=== PATIENT | male | born 1955 | race Caucasian/White ===

== ENCOUNTER 2023-09-20 14:33 | Emergency (ER) | payer OTHER, SELFPAY ==
--- NOTE | ~2023-09-20 | XR_ITS ---
EXAMINATION: XR CHEST CLINICAL INFORMATION: Fever and weakness COMPARISON: None available. TECHNIQUE: Frontal view of the chest was obtained. FINDINGS: No significant abnormality is noted involving the heart, lungs, mediastinum, bony thorax or soft tissues. XR/XR chest 1V IMPRESSION: Unremarkable examination.
--- NOTE | ~2023-09-20 | CT_ITS ---
EXAMINATION: CT HEAD WITHOUT CONTRAST CLINICAL INFORMATION: Altered gait COMPARISON: None available. TECHNIQUE: Contiguous axial imaging was performed from the skull base to vertex without intravenous administration of contrast. This CT examination was performed using dose optimization techniques as appropriate, variously including the following: *Automated exposure control *Adjustment of mA and/or kV according to patient size (this includes techniques or standardized protocols for targeted exams where dose is matched to indication/reason for exam; i.e. extremities or head) *Use of iterative reconstruction technique DLP: 776 mGy-cm FINDINGS: There is no evidence of an extra-axial collection. There is no evidence of intra or extra-axial hemorrhage. The ventricles and extra-axial CSF spaces are slightly prominent suggestive of mild generalized atrophy. There is nonspecific periventricular white matter disease. There is question of a left basal ganglia lacunar infarct axial image 28 series 2. No mass or mass effect is seen. No skull fracture. Visualized paranasal sinuses, mastoid air cells and middle ears are clear. CT/CT head/brain wo IV con IMPRESSION: Mild generalized atrophy and nonspecific periventricular white matter disease. Question left basal ganglia lacunar infarct.
[2023-09-20 14:38] VITALS: BP 150/70; PULSE 84; O2SAT 95
[2023-09-20 14:46] VITALS: BP 143/57; PULSE 84; RESP 18; TEMP 39.1; O2SAT 97; BMI 36.9
--- NOTE | 2023-09-20 14:59 | ECG_ITS ---
Test Reason : afib Blood Pressure : / mmHG Vent. Rate : 085 BPM Atrial Rate : 085 BPM P-R Int : 272 ms QRS Dur : 092 ms QT Int : 332 ms P-R-T Axes : 063 073 022 degrees QTc Int : 395 ms Sinus rhythm with 1st degree A-V block with Premature atrial complexes Otherwise normal ECG No previous ECGs available Referred By: John Jackson Electronically Signed By:Lobo Bustillos
--- NOTE | 2023-09-20 15:02 | ED_ITS ---
HPI - General Adult General Chief complaint: General Medical Stated complaint: FEVER WEAKNESS Time Seen by Provider: 09/20/23 14:41 Source: patient, family () and other [facility] Limitations: no limitations History of Present Illness HPI narrative: 68 years old with history of chronic kidney disease stage 3, GERD, hyperlipidemia, diabetes, morbid obesity, hypertension, OMER, lower back pain, presents emergency room for fever and generalized weakness. According to the patient and his was the primary source of history the patient woke up this morning complaining of weakness and seemed unsteady when walking, they went to the [place] where the patient received most of his care and it was noted that patient was febrile and therefore he was sent here for medical evaluation. On arrival patient the temperature of 102?, he is oriented times 4, reports weakness, runny nose but otherwise denies respiratory distress, no chest pain no abdominal pain nausea or vomiting. reports that she did not notice any rash on the patient's skin but that few weeks ago patient had a ?lesion? on his big toe of the left foot which has since then healed. reports that she thinks patient is vaccinated for COVID last flu shot in 2021. He denies respiratory symptoms, denies headache, blurry vision, slurred speech No recent trauma Denies unilateral weakness [facility] they were concerned for the fever and wanted to rule out also possible CVA. Related Data Allergies Allergy/AdvReac Type Severity Reaction Status Date / Time amlodipine Allergy Unknown Verified 09/20/23 14:57 atorvastatin [From Lipitor] Allergy Unconscious Verified 09/20/23 14:57 chlorthalidone Allergy Unknown Verified 09/20/23 14:57 diltiazem Allergy Unknown Verified 09/20/23 14:57 enalapril Allergy Unknown Verified 09/20/23 14:57 fluticasone Allergy Unknown Verified 09/20/23 14:57 lisinopril Allergy Unknown Verified 09/20/23 14:57 nifedipine Allergy Unknown Verified 09/20/23 14:57 rosuvastatin Allergy Unknown Verified 09/20/23 14:57 Review of Systems 2 Review of Systems: Yes all other systems are reviewed and are negative [facility] Social History Social History Alcohol intake: never Smoked in Last 30 Days: No Use of substances other than those prescribed or required for medical reasons: No Advance Directives: No Advance Directives Information Provided: Yes Physical Exam ED Vital Signs: Vital Signs - 24 hr 09/20/23 14:46 09/20/23 16:01 09/20/23 16:45 Temperature 102.4 F H 103 F H 102.8 F H Pulse Rate 84 81 Respiratory Rate 18 19 Blood Pressure 143/57 H 134/54 L Pulse Oximetry 97 92 Oxygen Delivery Method Room Air Room Air 09/20/23 17:33 Temperature 102.3 F H Pulse Rate 82 Respiratory Rate 18 Blood Pressure 131/68 Pulse Oximetry 94 Oxygen Delivery Method Room Air BMI result Body Mass Index 36.9 General: Alert, Not in Distress Skin: No rash, warm HEENT: Atraumatic, No Exudate or Pharyngeal Erythema Resp: Normal Breath sounds bilaterally Cardio: Regular rate and Rhythm, Normal S1, S2 ABD: Abd soft, non tender, no guarding or rebound. Normal Bowel sounds. : No cva tenderness Neuro: Alert, oriented x4, PERRL Strenght 5/5 on all extremities Sensation is preserved in both lower and upper extremities Index to nose: normal Cranial Nerves II-XII grossly intact No dysarthria, or aphasia No neglet. Visual buitrago are normal bilaterally Psych: Cooperative, NO SI Course Reevaluation(s) Reevaluation #1: Repeated the patient's EKG which I interpreted and reviewed shows sinus rhythm with first-degree heart block Blood work showed positive COVID test which accounts for patient's symptoms. Patient reports that he feels better and at this time he does not require any supplemental oxygen I think he is a good candidate for outpatient treatment. Given kidney insufficiency stage III I recommended patient to avoid NSAIDs and just use Tylenol. Return precautions were discussed with the patient and his at baseline. I recommended the patient to follow-up with his PCP in the next week Antiviral use was discussed at bedside pros and cons very evaluated with the patient and we decided to not start antiviral rn Time: 18:15 Medications Administered Discontinued Medications Generic Name Dose Route Start Last Admin Trade Name Freq PRN Reason Stop Dose Admin Acetaminophen 975 mg 09/20/23 14:58 09/20/23 15:10 Acetaminophen 325 Mg Tablet PO 09/20/23 14:59 975 mg ONCE ONE Administration Sodium Chloride 500 mls @ 999 mls/hr 09/20/23 15:00 09/20/23 16:21 Ns IV 09/20/23 15:30 Infused .Q31M STEF Infusion Medical Decision Making Medical Decision Making [facility] Narrative: 68 years old presenting to the emergency room with fever and weakness. The source of the fever right now is unclear however patient is having some cough in the emergency room as well as reported runny nose therefore I think URI is definitely a possible diagnosis, patient does not have any urinary symptoms therefore UTI is less likely but we will send the UA for confirmation Viral syndrome it is also possible. Patient has complained of headaches this morning but for now he seems asymptomatic with no focal neurological deficit no signs of meningism therefore I have meningeal process low on my differential diagnosis at this time. Neurological exam was not consistent with CVA symptoms have been ongoing since this morning therefore I think a simple CT head should be enough to rule out a subacute process at this time. Plan CT head Chest x-ray CBC, BMP, UA COVID flu RSV IV fluids Blood cultures Tylenol Admission/Observation Consideration of admission/observation: Escalation of care including admission/observation considered Hemodynamically stable, no supplemental oxygen good outpatient candidate Lab Data [facility] Lab Attestation statement: I reviewed the patient's lab results. Positive COVID swab 09/20/23 15:52 09/20/23 15:53 Labs: Lab Results 09/20/23 09/20/23 09/20/23 Range/Units 15:52 15:53 15:56 WBC 8.0 (4.8-10.8) X10*3/uL RBC 3.81 L (4.60-5.80) X10*6/uL Hgb 11.0 L (14.0-18.0) g/dl Hct 33.5 L (42.0-52.0) % MCV 87.9 (80.0-98.0) fL MCH 28.9 (27.0-33.0) pg MCHC 32.8 (31.0-36.0) g/dl RDW 13.5 (11.0-16.0) % Plt Count 180 (160-400) X10*3/uL MPV 9.3 L (9.4-12.4) fL Immature Gran % (Auto) 0.3 (0.0-0.4) % Neut % (Auto) 77.1 H (45-73) % Lymph % (Auto) 11.4 L (20-40) % [place] % (Auto) 10.3 (2-11) % Eos % (Auto) 0.5 (0-4) % Baso % (Auto) 0.4 (0-2) % Lymph # (Auto) 0.9 L (1.2-4.9) X10*3/uL [place] # (Auto) 0.8 (0.1-1.2) X10*3/uL Eos # (Auto) 0.0 (0.0-0.4) X10*3/uL Baso # (Auto) 0.0 (0.0-0.2) X10*3/uL Abs Immat Gran (auto) 0.02 (0.00-0.03) X10*3/uL Absolute Neuts (auto) 6.2 (2.0-8.3) x10*3/uL Absolute Nucleated RBC 0.000 (0.0-0.012) X10*3/uL Nucleated RBC % (auto) 0.0 (0.0-0.2) /100WBC VBG pH (7.32-7.43) VBG pCO2 mmHg VBG pO2 mmHg VBG HCO3 (22-26) mmol/L VBG O2 Saturation % VBG Base Excess mmol/L Sodium 143 (135-145) mmol/L Potassium 3.3 (3.3-5.1) mmol/L Chloride 106 (96-108) mmol/L Carbon Dioxide 28 (22-29) mmol/L Anion Gap 12 (12-20) BUN 27 H (9-16) mg/dL Creatinine 1.94 H (0.5-1.4) mg/dL Estim Creat Clear Calc 45.8 Estimated GFR 35 Random Glucose 118 H (60-115) mg/dL Calcium 9.0 (8.4-10.2) mg/dL Urine Color Urine Appearance Urine pH (5.0-9.0) Ur Specific [place] (1.005-1.025) Urine Protein (Neg-Trace) mg/dL Urine Glucose (UA) (Negative) mg/dL Urine Ketones (Negative) mg/dL Urine Blood (Negative) Urine Nitrite (Negative) Ur Leukocyte Esterase (Negative) Urine RBC (0-2) /HPF Urine WBC (0-5) /HPF Ur Squamous Epith Cells (0-2) /HPF Urine Bacteria (None Seen) Hyaline Casts (0-2) /LPF Influenza Type A (PCR) NEGATIVE (Negative) Influenza Type B (PCR) NEGATIVE (Negative) RSV RNA Qual (PCR) NEGATIVE (Negative) SARS-CoV-2 RNA (RT-PCR) POSITIVE A (Negative) 09/20/23 09/20/23 Range/Units 15:57 17:32 WBC (4.8-10.8) X10*3/uL RBC (4.60-5.80) X10*6/uL Hgb (14.0-18.0) g/dl Hct (42.0-52.0) % MCV (80.0-98.0) fL MCH (27.0-33.0) pg MCHC (31.0-36.0) g/dl RDW (11.0-16.0) % Plt Count (160-400) X10*3/uL MPV (9.4-12.4) fL Immature Gran % (Auto) (0.0-0.4) % Neut % (Auto) (45-73) % Lymph % (Auto) (20-40) % [place] % (Auto) (2-11) % Eos % (Auto) (0-4) % Baso % (Auto) (0-2) % Lymph # (Auto) (1.2-4.9) X10*3/uL [place] # (Auto) (0.1-1.2) X10*3/uL Eos # (Auto) (0.0-0.4) X10*3/uL Baso # (Auto) (0.0-0.2) X10*3/uL Abs Immat Gran (auto) (0.00-0.03) X10*3/uL Absolute Neuts (auto) (2.0-8.3) x10*3/uL Absolute Nucleated RBC (0.0-0.012) X10*3/uL Nucleated RBC % (auto) (0.0-0.2) /100WBC VBG pH 7.40 (7.32-7.43) VBG pCO2 50 mmHg VBG pO2 31 mmHg VBG HCO3 32 H (22-26) mmol/L VBG O2 Saturation 46.0 % VBG Base Excess 6.3 mmol/L Sodium (135-145) mmol/L Potassium (3.3-5.1) mmol/L Chloride (96-108) mmol/L Carbon Dioxide (22-29) mmol/L Anion Gap (12-20) BUN (9-16) mg/dL Creatinine (0.5-1.4) mg/dL Estim Creat Clear Calc Estimated GFR Random Glucose (60-115) mg/dL Calcium (8.4-10.2) mg/dL Urine Color Yellow Urine Appearance Clear Urine pH 5.5 (5.0-9.0) Ur Specific [place] 1.020 (1.005-1.025) Urine Protein Trace (Neg-Trace) mg/dL Urine Glucose (UA) Negative (Negative) mg/dL Urine Ketones Negative (Negative) mg/dL Urine Blood Negative (Negative) Urine Nitrite Negative (Negative) Ur Leukocyte Esterase Negative (Negative) Urine RBC 0-2 (0-2) /HPF Urine WBC 0-5 (0-5) /HPF Ur Squamous Epith Cells 0-2 (0-2) /HPF Urine Bacteria None Seen (None Seen) Hyaline Casts 0-2 (0-2) /LPF Influenza Type A (PCR) (Negative) Influenza Type B (PCR) (Negative) RSV RNA Qual (PCR) (Negative) SARS-CoV-2 RNA (RT-PCR) (Negative) Independent Interpretation I performed an independent interpretation of an: EKG (I personally reviewed patient's EKG that shows in my opinion atrial fibrillation) Chronic Conditions Patient?s care impacted by: Diabetes and Other Discharge Plan Discharge Clinical Impression: URI (upper respiratory infection), COVID, Fever, Weakness Patient Disposition: Home, Self-Care Additional Instructions: You were seen in the emergency room for fever and weakness Your lab work showed positive COVID swab which accounts for today symptoms. At home we recommend using Tylenol 1000 mg every 6 hours for symptoms control Return to the emergency room if your symptoms worsen or if you experience shortness of breath or chest pain. Follow-up with your primary care physician in a week. Print Language: Armenian
[2023-09-20] MEDS: Acetaminophen 325 MG TABLET 975 MG PO (15:10)
[2023-09-20] MEDS: 0.9 % Sodium Chloride 500 ML 999 ML IV (15:10)
[2023-09-20 16:01] VITALS: TEMP 39.4
[2023-09-20 16:01] LABS: MANUAL DIFF FLAG NO
[2023-09-20 16:03] LABS: Basophils Percent Auto 0.4 % (0-2); Eosinophils Percent Auto 0.5 % (0-4); Hematocrit 33.5 % (42.0-52.0); Imm Gran Abs Auto 0.02 X10*3/uL (0.00-0.03); Imm Gran Pct Auto 0.3 % (0.0-0.4); Lymphocytes Absolute Auto 0.9 X10*3/uL (1.2-4.9); Lymphocytes Percent Auto 11.4 % (20-40); Mean Corpuscular HGB Conc 32.8 g/dl (31.0-36.0); Mean Corpuscular Hemoglobin 28.9 pg (27.0-33.0); Mean Corpuscular Volume 87.9 fL (80.0-98.0); Mean Platelet Volume 9.3 fL (9.4-12.4); Monocytes Absolute Auto 0.8 X10*3/uL (0.1-1.2); Monocytes Percent Auto 10.3 % (2-11); Neutrophils Absolute Auto 6.2 x10*3/uL (2.0-8.3); Neutrophils Percent Auto 77.1 % (45-73); Platelet Count 180 X10*3/uL (160-400); Red Blood Count 3.81 X10*6/uL (4.60-5.80); Red Cell Distribution Width 13.5 % (11.0-16.0)
[2023-09-20 16:06] LABS: VBG Base Excess 6.3 mmol/L; VBG HCO3 32 mmol/L (22-26); VBG pCO2 50 mmHg; VBG pO2 31 mmHg
[2023-09-20 16:15] LABS: Anion Gap 12 (12-20); Blood Urea Nitrogen 27 mg/dL (9-16); Carbon Dioxide 28 mmol/L (22-29); Chloride 106 mmol/L (96-108); Creatinine Clr Calc Pharmacy 45.8; Estimated Glomerular Filt Rate 35; Glucose Random 118 mg/dL (60-115); Potassium 3.3 mmol/L (3.3-5.1); Sodium 143 mmol/L (135-145)
[2023-09-20 16:17] LABS: Venous Blood Gas Refer to POC result
[2023-09-20 16:45] VITALS: BP 134/54; PULSE 81; RESP 19; TEMP 39.3; O2SAT 92
[2023-09-20 17:23] LABS: Influenza A PCR NEGATIVE (Negative); Influenza B PCR NEGATIVE (Negative); Resp Syncy Virus RNA Qual PCR NEGATIVE (Negative); SARS COV2 PCR INHOUSE POSITIVE (Negative)
[2023-09-20 17:33] VITALS: BP 131/68; PULSE 82; RESP 18; TEMP 39.1; O2SAT 94
--- NOTE | 2023-09-20 17:47 | ECG_ITS ---
Test Reason : irregular rhythm Blood Pressure : / mmHG Vent. Rate : 082 BPM Atrial Rate : 082 BPM P-R Int : 280 ms QRS Dur : 096 ms QT Int : 350 ms P-R-T Axes : 059 069 018 degrees QTc Int : 408 ms Sinus rhythm with sinus arrhythmia with 1st degree A-V block Otherwise normal ECG When compared with ECG of 20-SEP-2023 15:20, Premature atrial complexes are no longer Present Referred By: John Jackson Electronically Signed By:Lobo Bustillos
[2023-09-20 17:49] LABS: Appearance Urine Clear; Color Urine Yellow; Glucose Urine UA Negative (Negative); Leukocyte Esterase Urine Negative (Negative); Nitrite Urine Negative (Negative); PH 5.5 (5.0-9.0); Urine Blood Negative (Negative); Urine Ketones Negative (Negative); Urine Protein Trace mg/dL (Neg-Trace)
[2023-09-20 18:06] LABS: Bacteria Urine None Seen (None Seen); Hyaline Casts Urine 0-2 /LPF (0-2); RBC Urine 0-2 /HPF (0-2); Squamous Epithelial Cell Urine 0-2 /HPF (0-2); WBC Urine 0-5 /HPF (0-5)
--- NOTE | 2023-09-20 18:20 | ED.GENADULT ---
HPI - General Adult General Chief complaint: General Medical Stated complaint: FEVER WEAKNESS Time Seen by Provider: 09/20/23 14:41 Source: patient, family () and other [facility]) Limitations: no limitations History of Present Illness HPI narrative: OPENED IN DUPLICATE PLEASE DELETE Related Data Allergies Allergy/AdvReac Type Severity Reaction Status Date / Time amlodipine Allergy Unknown Verified 09/20/23 14:57 atorvastatin [From Lipitor] Allergy Unconscious Verified 09/20/23 14:57 chlorthalidone Allergy Unknown Verified 09/20/23 14:57 diltiazem Allergy Unknown Verified 09/20/23 14:57 enalapril Allergy Unknown Verified 09/20/23 14:57 fluticasone Allergy Unknown Verified 09/20/23 14:57 lisinopril Allergy Unknown Verified 09/20/23 14:57 nifedipine Allergy Unknown Verified 09/20/23 14:57 rosuvastatin Allergy Unknown Verified 09/20/23 14:57 PMFSH Social History Social History Alcohol intake: never Smoked in Last 30 Days: No Use of substances other than those prescribed or required for medical reasons: No Advance Directives: No Advance Directives Information Provided: Yes Physical Exam ED Vital Signs: Vital Signs - 24 hr 09/20/23 14:46 09/20/23 16:01 09/20/23 16:45 Temperature 102.4 F H 103 F H 102.8 F H Pulse Rate 84 81 Respiratory Rate 18 19 Blood Pressure 143/57 H 134/54 L Pulse Oximetry 97 92 Oxygen Delivery Method Room Air Room Air 09/20/23 17:33 Temperature 102.3 F H Pulse Rate 82 Respiratory Rate 18 Blood Pressure 131/68 Pulse Oximetry 94 Oxygen Delivery Method Room Air BMI result Body Mass Index 36.9 Medications Administered Discontinued Medications Generic Name Dose Route Start Last Admin Trade Name Freq PRN Reason Stop Dose Admin Acetaminophen 975 mg 09/20/23 14:58 09/20/23 15:10 Acetaminophen 325 Mg Tablet PO 09/20/23 14:59 975 mg ONCE ONE Administration Sodium Chloride 500 mls @ 999 mls/hr 09/20/23 15:00 09/20/23 16:21 Ns IV 09/20/23 15:30 Infused .Q31M STEF Infusion Medical Decision Making Lab Data 09/20/23 15:52 09/20/23 15:53 Labs: Lab Results 09/20/23 09/20/2309/19/24 Range/Units 15:52 15:53 15:56 WBC 8.0 (4.8-10.8) X10*3/uL RBC 3.81 L (4.60-5.80) X10*6/uL Hgb 11.0 L (14.0-18.0) g/dl Hct 33.5 L (42.0-52.0) % MCV 87.9 (80.0-98.0) fL MCH 28.9 (27.0-33.0) pg MCHC 32.8 (31.0-36.0) g/dl RDW 13.5 (11.0-16.0) % Plt Count 180 (160-400) X10*3/uL MPV 9.3 L (9.4-12.4) fL Immature Gran % (Auto) 0.3 (0.0-0.4) % Neut % (Auto) 77.1 H (45-73) % Lymph % (Auto) 11.4 L (20-40) % [place] % (Auto) 10.3 (2-11) % Eos % (Auto) 0.5 (0-4) % Baso % (Auto) 0.4 (0-2) % Lymph # (Auto) 0.9 L (1.2-4.9) X10*3/uL [place] # (Auto) 0.8 (0.1-1.2) X10*3/uL Eos # (Auto) 0.0 (0.0-0.4) X10*3/uL Baso # (Auto) 0.0 (0.0-0.2) X10*3/uL Abs Immat Gran (auto) 0.02 (0.00-0.03) X10*3/uL Absolute Neuts (auto) 6.2 (2.0-8.3) x10*3/uL Absolute Nucleated RBC 0.000 (0.0-0.012) X10*3/uL Nucleated RBC % (auto) 0.0 (0.0-0.2) /100WBC VBG pH (7.32-7.43) VBG pCO2 mmHg VBG pO2 mmHg VBG HCO3 (22-26) mmol/L VBG O2 Saturation % VBG Base Excess mmol/L Sodium 143 (135-145) mmol/L Potassium 3.3 (3.3-5.1) mmol/L Chloride 106 (96-108) mmol/L Carbon Dioxide 28 (22-29) mmol/L Anion Gap 12 (12-20) BUN 27 H (9-16) mg/dL Creatinine 1.94 H (0.5-1.4) mg/dL Estim Creat Clear Calc 45.8 Estimated GFR 35 Random Glucose 118 H (60-115) mg/dL Calcium 9.0 (8.4-10.2) mg/dL Urine Color Urine Appearance Urine pH (5.0-9.0) Ur Specific [place] (1.005-1.025) Urine Protein (Neg-Trace) mg/dL Urine Glucose (UA) (Negative) mg/dL Urine Ketones (Negative) mg/dL Urine Blood (Negative) Urine Nitrite (Negative) Ur Leukocyte Esterase (Negative) Urine RBC (0-2) /HPF Urine WBC (0-5) /HPF Ur Squamous Epith Cells (0-2) /HPF Urine Bacteria (None Seen) Hyaline Casts (0-2) /LPF Influenza Type A (PCR) NEGATIVE (Negative) Influenza Type B (PCR) NEGATIVE (Negative) RSV RNA Qual (PCR) NEGATIVE (Negative) SARS-CoV-2 RNA (RT-PCR) POSITIVE A (Negative) 09/20/23 09/20/23 Range/Units 15:57 17:32 WBC (4.8-10.8) X10*3/uL RBC (4.60-5.80) X10*6/uL Hgb (14.0-18.0) g/dl Hct (42.0-52.0) % MCV (80.0-98.0) fL MCH (27.0-33.0) pg MCHC (31.0-36.0) g/dl RDW (11.0-16.0) % Plt Count (160-400) X10*3/uL MPV (9.4-12.4) fL Immature Gran % (Auto) (0.0-0.4) % Neut % (Auto) (45-73) % Lymph % (Auto) (20-40) % [place] % (Auto) (2-11) % Eos % (Auto) (0-4) % Baso % (Auto) (0-2) % Lymph # (Auto) (1.2-4.9) X10*3/uL [place] # (Auto) (0.1-1.2) X10*3/uL Eos # (Auto) (0.0-0.4) X10*3/uL Baso # (Auto) (0.0-0.2) X10*3/uL Abs Immat Gran (auto) (0.00-0.03) X10*3/uL Absolute Neuts (auto) (2.0-8.3) x10*3/uL Absolute Nucleated RBC (0.0-0.012) X10*3/uL Nucleated RBC % (auto) (0.0-0.2) /100WBC VBG pH 7.40 (7.32-7.43) VBG pCO2 50 mmHg VBG pO2 31 mmHg VBG HCO3 32 H (22-26) mmol/L VBG O2 Saturation 46.0 % VBG Base Excess 6.3 mmol/L Sodium (135-145) mmol/L Potassium (3.3-5.1) mmol/L Chloride (96-108) mmol/L Carbon Dioxide (22-29) mmol/L Anion Gap (12-20) BUN (9-16) mg/dL Creatinine (0.5-1.4) mg/dL Estim Creat Clear Calc Estimated GFR Random Glucose (60-115) mg/dL Calcium (8.4-10.2) mg/dL Urine Color Yellow Urine Appearance Clear Urine pH 5.5 (5.0-9.0) Ur Specific [place] 1.020 (1.005-1.025) Urine Protein Trace (Neg-Trace) mg/dL Urine Glucose (UA) Negative (Negative) mg/dL Urine Ketones Negative (Negative) mg/dL Urine Blood Negative (Negative) Urine Nitrite Negative (Negative) Ur Leukocyte Esterase Negative (Negative) Urine RBC 0-2 (0-2) /HPF Urine WBC 0-5 (0-5) /HPF Ur Squamous Epith Cells 0-2 (0-2) /HPF Urine Bacteria None Seen (None Seen) Hyaline Casts 0-2 (0-2) /LPF Influenza Type A (PCR) (Negative) Influenza Type B (PCR) (Negative) RSV RNA Qual (PCR) (Negative) SARS-CoV-2 RNA (RT-PCR) (Negative) Discharge Plan Discharge Clinical Impression: URI (upper respiratory infection), COVID, Fever, Weakness Patient Disposition: Home, Self-Care Additional Instructions: You were seen in the emergency room for fever and weakness Your lab work showed positive COVID swab which accounts for today symptoms. At home we recommend using Tylenol 1000 mg every 6 hours for symptoms control Return to the emergency room if your symptoms worsen or if you experience shortness of breath or chest pain. Follow-up with your primary care physician in a week. Print Language: Kyrgyz
[2023-09-20 18:31] VITALS: BP 131/68; PULSE 82; RESP 18; TEMP 38.8; O2SAT 95
== END 2023-09-20 18:50 | disposition home or self-care (01) ==
PROVIDERS: Emergency Provider Student in an Organized Health Care Education/Training Program; PCP Nurse Practitioner Family
DX: U07.1 COVID-19 (principal); J06.9 Acute upper respiratory infection, unspecified; E11.22 Type 2 diabetes mellitus with diabetic chronic kidney disease; I12.9 Hypertensive chronic kidney disease with stage 1 through stage 4 chronic kidney disease, or unspecified chronic kidney disease; N18.30 Chronic kidney disease, stage 3 unspecified
CPT/HCPCS: 0241U; 70450; 71045; 80048; 81001; 82803; 85025; 87040; 93005; 96360; 99284; 99285

== ENCOUNTER → 2023-09-20 14:59 | Outpatient (BNV) | payer OTHER, SELFPAY | PROVIDERS: Emergency Provider Student in an Organized Health Care Education/Training Program; PCP Nurse Practitioner Family; Visit Provider Internal Medicine Cardiovascular Disease | DX: I44.0 Atrioventricular block, first degree (principal); I48.91 Unspecified atrial fibrillation | CPT/HCPCS: 93010 ==

== ENCOUNTER 2024-11-03 14:07 | Outpatient (REF) | payer OTHER, SELFPAY | END 2024-11-03 14:08 | disposition home or self-care (01) | LOC: HO.HKASLDS 14:07 | PROVIDERS: PCP Nurse Practitioner Family; Visit Provider Internal Medicine Nephrology | DX: N18.32 Chronic kidney disease, stage 3b (principal) | CPT/HCPCS: 99202 ==

== ENCOUNTER 2024-11-03 14:07 | Outpatient (AMB) | payer OTHER, SELFPAY ==
--- OUTSIDE RECORDS SUMMARY | 2024-11-03 14:19 | XMS_ITS | Encounter Summary ---
Author Name [facility] Organization [facility]) Address [address] [place] [id number] Care Team Providers Care Water Treatment Operator Name Role Phone SAGRARIO PORTILLO Primary Care Provider Unavailabl e PATTIE DA SILVA Primary Care Provider Unavailabl e Insurance Providers: All historical and current Section Date Range: From patient's date of to the date document was created. This section includes the names of all active insurance providers for the patient. Insurance Provider Type of Coverage Plan Name Start of Policy Coverage End of Policy Coverage Group Number Member ID Insurance Provider's Telephone Number Policy Veloz's Name Patient's Relationship to Policy Veloz MEDICARE (WN) MEDICARE (M) PART B Nov 08, 2021 PART B [id number] [phone] QINGSHELBY JONES PATIENT MEDICARE (WNR) MEDICARE (M) PART B Nov 08, 2021 PART B [id number] [phone] SHELBY ZALDIVAR PATIENT MEDICARE (WNR) MEDICARE (M) PART B Nov 08, 2021 PART B [id number] SHELBY ZALDIVAR PATIENT MEDICARE (WNR) MEDICARE (M) PART B Nov 08, 2021 PART B [id number] [phone] [id number] D SHELBY PATIENT MEDICARE (WNR) MEDICARE (M) PART A May 10, 2021 PART A [id number] SHELBY ZALDIVAR PATIENT MEDICARE (WNR) MEDICARE (M) PART A May 10, 2021 PART A [id number] [phone] SHELBY ZALDIVAR PATIENT MEDICARE (WNR) MEDICARE (M) PART A May 10, 2021 PART A [id number] PW89 [phone] SHELBY ZALDIVAR PATIENT MEDICARE (WNR) MEDICARE (M) PART A May 10, 2021 PART A [id number] [phone] SHELBY ZALDIVAR PATIENT Selected Encounter This section includes the information on record at MD for the Encounter. Date/Time Encounter Type Encounter Description Reason Provider Source Jan 27, 2024 11:30 AM OFFICE O/P EST MOD 30 MIN PRIMARY CARE/MEDICINE ICD-10-CM Z00.01 Encounter for general adult medical exam w abnormal findings MAEGAN MARTIN Tyrel Encounter Template Text not used by MD Assessments - Encounter Diagnoses This section includes the primary and secondary diagnoses documented for the Encounter. Date/Time Primary/Secondary Diagnosis Diagnosis Name Provider Source Jan 27, 2024 01:27 PM PRIMARY Encounter for general adult medical exam w abnormal findings ANNETTE MARTIN Plan of Treatment: Future Appointments (+ 6 months) and Future Tests (+/- 45 days) The Plan of Treatment section includes future care activities for the patient from all MD treatmentfacilities. This section includes future appointments and future orders which are active, pending or scheduled. Future Appointments This section includes appointments that were scheduled to occur 6 months from the date of the Encounter, up to a maximum of 20 appointments. The data comes from all MD treatment facilities. Appointment Date/Time Appointment Type Appointme nt Facility Name Jan 29, 2024 09:30 AM AMBULATORY - MEDICINE [place] [facility] [place] [facility] Jan 31, 2024 12:00 PM AMBULATORY - MEDICINE [facility] [place] [facility] Jan 31, 2024 01:00 PM AMBULATORY - MEDICINE [facility] [place] [facility] Feb 13, 2024 09:30 AM AMBULATORY - MEDICINE [facility] Feb 24, 2024 08:00 AM AMBULATORY - MEDICINE [place] [facility] [place] [facility] Feb 28, 2024 01:30 PM AMBULATORY - RE[facility] Mar 31, 2024 09:00 AM AMBULATORY - REHAB [facility] May 25, 2024 08:30 AM AMBULATORY - MEDICINE [facility] Jun 23, 2024 11:00 AM AMBULATORY - MEDICINE [facility] NTRL TRN [facility] Jul 01, 2024 09:00 AM AM[facility]ULATORY - [facility] Jul 28, 2024 11:00 AM [facility] Lab Results: +/- 30 days of the encounter This section includes the Chemistry and Hematology Lab Results on record with MD for the patient. Radiology Reports and Pathology Reports are provided separately, in subsequent sections. Lab Results This section contains the Chemistry/Hematology Results that were resulted 30 days before or 30 daysafter the date of the Encounter. Date/Time Source Result Type Result - Unit Interpretation Reference Range Specimen Type Comment Jan 27, 2024 10:20 AM [facility] PROTEIN SERUM ELECTROPHORESIS PANEL/FIORELLA SERUM Specimen Type: SERUM Comment: SER No monoclonal protein observed on SPEP and FIORELLA. SPEP reviewed by Angie Mendez MD IEP=IMMUNOELECTR OPHORESIS; FIORELLA=IMMUNOFIXATI ON ELECTROPHORESIS Ordering Provider: MARYAM JIMENEZ Report Released Date/Time: Dec 23, 2023 03:03 PM Reporting Lab: [facility] [address] [facility] [address] Performing Lab: [facility] [address] [facility] [address] Alpha-1 Globulin 0.25 g/dL 0.19-0.50 Alpha-2 Globulin 0.87 g/dL 0.46-1.20 Beta Globulin 0.85 g/dL 0.56-1.18 Albumin 4.46 g/dL 3.13-5.37 A/G Ratio 1.57 0.99-1.81 Gamma Globulin 0.88 g/dL 0.67-1.67 Jan 27, 2024 10:20 AM [facility] HEPATITIS B CORE (Total) Ab SERUM Specimen Ty pe: SERUM Comment: This test detects both IgG and IgM antibodies. A Reactive result ( Positive prior to 03/23/13) may indicate either current or previous hepatitis B infection. Antibodies to Hepatitis B Core may be the only marker of recent hepatitis B infection during the window period when Hepatitis B surface antigen has disappeared and Hepatitis B surface antibodies are not yet detectable. A Reactive result ( Positive prior to 03/23/13) is diagnostic of acute or chronic hepatitis B infection. The presence of Hepatitis B surface antigen is frequently associated with infectivity. Ordering Provider: MARYAM JIMENEZ Report Released Date/Time: Dec 23, 2023 03:03 PM Reporting Lab: [address] [address] Performing Lab: [address] [address] HEPATITIS B CORE (Total) Ab Non Reactive Non Reactive Jan 27, 2024 10:20 AM [facility] HEPATITIS B SURFACE ANTIGEN (HBsAg)- SERUM Specimen Type: SERUM Comment: This test detects both IgG and IgM antibodies. A Reactive result ( Positive prior to 03/23/13) may indicate either current or previous hepatitis B infection. Antibodies to Hepatitis B Core may be the only marker of recent hepatitis B infection during the window period when Hepatitis B surface antigen has disappeared and Hepatitis B surface antibodies are not yet detectable. A Reactive result ( Positive prior to 03/23/13) is diagnostic of acute or chronic hepatitis B infection. The presence of Hepatitis B surface antigen is frequently associated with infectivity. Ordering Provider: MARYAM JIMENEZ Report Released Date/Time: Dec 23, 2023 03:03 PM Reporting Lab: [address] [address] Performing Lab: [address] [address] HBsAg Non Reactive Non Reactive Jan 27, 2024 10:20 AM [facility] HEPATITIS B SURFACE ANTIBODY (HBsAb)- SERUM Specimen Type: SERUM No comment entered. Ordering Provider: MARYAM JIMENEZ Report Released Date/Time: Dec 23, 2023 03:03 PM Reporting Lab: [address] [address] [facility]: [facility] Jan 27, 2024 10:20 AM [facility] FREE PSA PROFILE SERUM Specimen Type: SERUM Comment: Free PSA not performed if total PSA is <4 or >10. % Free PSA <25 % suggests an increased risk for prostate cancer and possible need for biopsy. Ordering Provider: MARYAM JIMENEZ Report Released Date/Time: Dec 23, 2023 03:03 PM Reporting Lab: [facility] [address] [facility] [address] Performing Lab: [facility] [address] [facility] [address] PSA, Total (wr) 0.63 ng/mL 0-4 PSA, Free (wr) comment ng/mL % Free PSA (wr) comment See Eval Informa tion Jan 27, 2024 10:20 AM [facility] BASIC METABOLIC PANEL (non-fasting) SERUM Spe cimen Type: SERUM No comment entered. Ordering Provider: MARYAM JIMENEZ Report Released Date/Time: Dec 23, 2023 03:03 PM Reporting Lab: [address] [address] Performing Lab: [address] [address] UREA NITROGEN 27 mg/dL H 7-25 GLUCOSE 96 mg/dL 65-100 SODIUM 139 mmol/L 135-145 POTASSIUM 3.6 mmol/L 3.5-5.0 CHLORIDE 101 mmol/L 100-110 CO2 26 meq/L 20-30 CREATININE, Serum 1.91 mg/dL H 0.50-1.40 eGFR(CKD-EPI 2020) 38 mL/min L >60 Jan 27, 2024 10:20 AM [facility] CBC AND DIFF (AUTO) BLOOD Specimen Type: BLOO D No comment entered. Ordering Provider: MARYAM JIMEENZ Report Released Date/Time: Dec 23, 2023 03:03 PM Reporting Lab: [address] [address] Performing Lab: [facility] [address] [facility] [address] WBC 6.49 10*3/uL 4.50-11.00 RBC 4.61 10*6/uL 4.23-5.66 HGB 13.2 g/dL 12.8-17 HCT 39.7 39.2-50.4 MCV 86.1 fL 82-99 MCHC 33.2 g/dL 30.8-35.1 PLT 233 10*3/uL 140-360 RDW-CV 13.8 12.0-16.0 MONO, ABS 0.39 10*3/uL 0.30-1.10 MCH 28.6 pg 26.2-32.6 NEUT % 58.2 43.7-75.8 LYMPH % 31.9 14.0-42.3 MONO % 6.0 5.1-13.7 EOS % 2.9 0.4-6.8 BASO % 0.8 0.1-2.0 NEUT, ABS 3.78 10*3/uL 2.20-7.60 LYMPH, ABS 2.07 10*3/uL 1.00-3.20 EOS, ABS 0.19 10*3/uL 0.03-0.44 BASO, ABS 0.05 10*3/uL 0.01-0.13 IMMATURE GRAN % 0.2 0.0-0.7 IMMATURE GRAN, ABS 0.01 10*3/uL 0.00-0.0 6 NRBC % 0.0 0.0-0.0 NRBC, ABS 0.00 10*3/uL 0.00-0.00 Jan 27, 2024 10:20 AM [facility] HEPATITIS C ANTIBODY (HCV)-ARC SERUM Specimen Type: SERUM Comment: Hep C Ab: No HCV antibody detected. If recent infection is suspected or other evidence suggests HCV infection, consider HCV nucleic acid testing Ordering Provider: MARYAM JIMENEZ Report Released Date/Time: Dec 23, 2023 03:03 PM Reporting Lab: [facility] [address] [facility] [address] Performing Lab: [address] [address] HEPATITIS C ANTIBODY NON-REACTIVE NON-RE ACTIVE Jan 27, 2024 10:20 AM [facility] PSA SERUM Specimen Type: SERUM No comment entered. Ordering Provider: MARYAM JIMENEZ Report Released Date/Time: Dec 23, 2023 03:03 PM Reporting Lab: [facility] [address] [facility] [address] Performing [facility]: [facility] [address] [facility] [address] PSA 0.60 ng/mL 0.00-4.00 Jan 27, 2024 10:20 AM [facility] HIV 1&2 Ag/Ab SCREEN SERUM Specimen Type: SER UM No comment entered. Ordering Provider: MARYAM JIMENEZ Report Released Date/Time: Dec 23, 2023 03:03 PM Reporting Lab: [facility] [address] [facility] [address] Performing [facility]: [facility] [address] [address] HIV 1&2 Ag/Ab SCREEN NON-REACTIVE Nonrea ctive Jan 27, 2024 10:20 AM [facility] PROTEIN/CREATININE RATIO PANEL, URINE URINE S pecimen Type: URINE No comment entered. Ordering Provider: MARYAM JIMENEZ Report Released Date/Time: Dec 23, 2023 03:03 PM Reporting Lab: [facility] [address] [address] Performing Lab: [facility] [address] [address] CREATININE URINE 49.60 mg/dL UR PROTEIN/CREATININE RATIO canc <0.2 PROTEIN, URINE < 6.8 mg/dL 0.0-20.0 Jan 27, 2024 10:20 AM [facility] URIC ACID SERUM Specimen Type: SERUM No comment entered. Ordering Provider: MARYAM JIMENEZ Report Released Date/Time: Dec 23, 2023 03:03 PM Reporting Lab: [facility] [address] [address] Performing Lab: [facility] [place] [facility] [address] [facility] [address] URIC ACID 10.0 mg/dL H 3.5-7.2 Jan 27, 2024 10:20 AM [facility] MAGNESIUM SERUM Specimen Type: SERUM No comment entered. Ordering Provider: MARYAM JIMENEZ Report Released Date/Time: Dec 23, 2023 03:03 PM Reporting Lab: [facility] [place] [facility] [address] [facility] [address] Performing Lab: [facility] [address] [facility] [address] MAGNESIUM 2.0 mg/dL 1.6-2.6 Jan 27, 2024 10:20 AM [facility] PO4 SERUM Specimen Type: SERUM No comment entered. Ordering Provider: MARYAM JIMENEZ Report Released Date/Time: Dec 23, 2023 03:03 PM Reporting Lab: [facility] [place] [facility] [address] [facility] [address] Performing Lab: [facility] [address] [facility] [address] PO4 2.9 mg/dL 2.5-5.0 Jan 27, 2024 10:20 AM [facility] PTH INTACT SERUM Specimen Type: SERUM No comment entered. Ordering Provider: MARYAM JIMENEZ Report Released Date/Time: Dec 23, 2023 03:03 PM Reporting Lab: [facility] [place] [facility] [address] [facility] [address] Performing Lab: [facility] [address] [facility] [address] PTH INTACT 138.0 pg/mL H 10-65 Jan 27, 2024 10:20 AM [facility] VITAMIN D (25-OH) SERUM Specimen Type: SERUM No comment entered. Ordering Provider: MARYAM JIMENEZ Report Released Date/Time: Dec 23, 2023 03:03 PM Reporting Lab: [facility] [address] [facility] [address] Performing Lab: [address] [address] VITAMIN D (25-OH) 54 ng/mL H 20-50 Jan 27, 2024 10:20 AM [facility] HEMOGLOBIN A1C PANEL BLOOD Specimen Type: BLO OD Comment: Values obtained from A1C measurements can vary. For atypical A1C assays, a reported value of 7.0 could actually be between 6.72 and 7.28 if measured by a reference method. A reported value of 9.0 could actually be between 8.73 and 9.27. Ref: http://www.ngsp.org/CAPdata.asp Ordering Provider: ANY MONTOYA Report Released Date/Time: Jan 29, 2024 08:43 AM Reporting Lab: [address] [address] Performing Lab: [address] [address] HEMOGLOBIN A1C 5.4 4.0-5.6 Advance Directives: All historical and current Section Date Range: From patient's date of to the date document was created. This section includes ALL of a patient's completed or amended MD Advance and Rescinded Directives. The entries below indicate that a directive exists for the patient, but an actual copy is not included with this document. The data comes from all [facility]. Date Advance Directives Provider Source Apr 28, 2021 ADVANCE DIRECTIVE MARQUISE CHERRY [facility] May 20, 2014 ADVANCE DIRECTIVE VIRGINIE NG [facility] Radiology Reports: +/- 30 days of the encounter Radiology Reports For cases when an order for radiology services may have been completed prior to the date of the Encounter, the report list includes the Radiology Reports that were completed up to 30 days before dateof the Encounter. For cases when an order for radiology services may have been completed after the date of the Encounter, the report list also includes the Radiology Reports that were completed up to30 days after date of the Encounter. The data comes from all MD treatment facilities. Date/Time Radiology Report Provider Source Jan 31, 2024 12:11 PM FOOT 3 OR MORE VIEWS(LEFT): SHELBY ZALDIVAR [id number] -[id number] M Exm Date: JAN 31, 2024@12:11 Req Phys: JANICE TAVERAS Pat Loc: CWM/NO/SICK CALL PA (Req'g Loc Img Loc: NHM/BUILDING 1 Service: Unknown [facility] PAT [place] [id number] (Case [id number] COMPLETE) FOOT 3 OR MORE VIEWS(LEFT) (RAD Detailed) CPT:82288 CPT Modifiers : LT LEFT SIDE Reason for Study: bruising of left 2nd toe and plantar aspect of foot with selling Clinical History: DM Neuropathy, r/o fx Report Status: Verified Date Reported: JAN 31, 2024 Date Verified: JAN 31, 2024 Web Machine Tender E-Sig: Report: FOOT 3 OR MORE VIEWS(LEFT) HISTORY: bruising of left 2nd toe and plantar aspect of foot with selling. Reason for Study: bruising of left 2nd toe and plantar aspect of foot with selling DM Neuropathy, r/o fx .Reason for Study: bruising of left 2nd toe and plantar aspect of foot with selling

DM Neuropathy, r/o fx . Comparison October 16, 2023 Impression: No acute fracture or dislocation. No bony destruction. Plantar calcaneal spur. Posterior calcaneal enthesophyte fragment. READING PHYSICIAN: Jose Smith M.D. -[id number] 01/31/2024 10:09 PDT [facility] National Teleradiology Program [phone] (For Medical Practitioner Use Only) Attention Patients / Veterans: If you have questions or concerns about these test results, please contact your ordering provider or primary care team. Primary Diagnostic Code: NO ALERT REQUIRED Primary Interpreting Staff: RADIOLOGY,OUTSIDE SERVICE, Staff Physician / RADIOLOGY,OUTSIDE SERVICE [facility] Encounter Notes: All associated encounter notes This section contains the clinical notes associated to the Encounter. 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 The /caregiver was informed that we will continue to ask this screening question every 5 years. They can contact their provider/healthcare team if they have concerns about exposures and would like to be screened sooner. Printed information was offered and provided if desired. Toxic Exposure Screening: The Reeds/caregiver was asked if they believe the Reeds experienced any toxic exposure(s), such as Airborne Hazards and Open [place], [place] related exposures, Agent [place], Radiation, contaminated water at [place] or other such exposures, while serving in the Armed [employer]. Reeds has no concerns about toxic exposure(s) while serving in the Armed [employer]. The Reeds/caregiver was informed that we will continue to ask this screening question every 5 years. They can contact their provider/healthcare team if they have concerns about exposures and would like to be screened sooner. Printed information was offered and provided if desired. Homelessness/Food Insecurity Screen: In the past 2 months, have you been living in stable housing that you own, rent, or stay in as part of a household? Yes - Living in stable housing. Are you worried or concerned that in the next 2 months you may NOT have stable housing that you own, rent, or stay in as part of a household? No - Not worried about housing near future The Reeds reports the following: Within the past 12 months, you worried whether your food would run out before you got money to buy more. Never true Within the past 12 months, the food you bought just didn't last and you didn't have money to get more. Never true BMI>30/>24.99 High Risk: Patient declines to discuss weight management. Patient declined weight discussion. Discussed revisiting at a future visit. Avg Risk Colorectal Cancer Screen: AVERAGE RISK colorectal cancer screening is due based on information available to this clinical reminder CRC screen completed elsewhere and waiting for results. Results expected: Colonoscopy Hemoglobin A1C: Patient declines Hemoglobin A1C testing at this time. Hepatitis C Testing: Patient declines HCV lab test. HIV Screening: Patient has been offered HIV testing and has declined. I have explained that HIV testing is recommended for all adults, even if all risk factors are absent. The patient was educated on the risk of delayed screening. COVID-19 Immunization: Refused Moderna Monovalent COVID-19 vaccine Immunization: COVID-19 (MODERNA), MRNA, LNP-S, PF, 50 MCG/0.5 ML (AGES 12+ YEARS) Refusal Reason: PATIENT DECISION Patient refuses all immunization(s) in the COVID-19 group Date Documented: 01/27/24 12:51 RHS Screen: RHS Screen Session Format: Face to Face Environmental Check Upon inquiry, the individual reports that the environment is safe to proceed. Informed Consent to Screen and Document The individual consents to proceed with screening. The individual consents to documentation of responses. PRIMARY SCREEN: In the past 12 months, how often did a current or former intimate partner (e.g., boyfriend, girlfriend, , , sexual partner): 1. Scream or curse at you Never 2. Insult or talk down to you Never 3. Threaten you with harm Never 4. Physically hurt you Never 5. Force or pressure you to have sexual contact against your will, or when you were unable to say no Never ?? The HITS tool (items 1-4 above) is US copyright protected by Pal Sawyer MD, and the user has full rights to use it throughout the MD system. PRIMARY SCREEN RESULT: The Primary Screen is NEGATIVE. The individual answered never to all forms of IPV above (i.e., answered never to all 5 items) The individual accepts education and/or resources: No EDUCATION: The individual indicated readiness to learn. Education offered during this session as noted above. The individual indicated understanding by asking relevant questions and making appropriate comments. No barriers to learning were observed or identified. MED REC COMPLETED BY PROVIDER DURING THE VISIT. /leda/ EVER AGUILA LPN LPN Signed: 01/27/2024 12:52 EVER AGUILA HADDAM Jan 27, 2024 08:18 AM PHYSICIAN NOTE: LOCAL TITLE: NOTE STANDARD TITLE: PHYSICIAN NOTE DATE OF NOTE: JAN 27, 2024@08:18 ENTRY DATE: JAN 27, 2024@08:18:39 AUTHOR: ZARI MARTIN EXP COSIGNER: URGENCY: STATUS: COMPLETED SUBJECT: Transfer PACT CC: 68 year old WHITE MALE NSC with metabolic syndrome/OMER/CKD HPI: Patient presents today here as a transfer from [place]. He has a detailed his multiple concerns (please see scanned sheet). His most pressing problem is unmedicated low back pain for which he has been a taper on his gabapentin because of declining renal function. He does have questions regarding safety at this point. I defer this stability of renal function back to his headwaitress. Patient however is keen on having some relief on the pain. I have outlined the different modalities for lower back pain which includes medication, physical therapy/chiropractor/acupunctur e/physiatry (4 injection therapy for which she had some limited success in the distant past) as well as neurosurgery. There is also more advanced pain management consult which can be placed on his behalf should these conventional therapies are not successful. He did elect to go back to physical therapy with additional concerns about his lightheadedness as well as his balance issues. This has been detailed in the referral. Other medication and issues including the increase in dosing for sildenafil were discussed. Patient was quite amenable to bringing his diabetes control to the pharmacy in terms of getting better monitoring (continuous glucose monitoring) possible use of weight loss medication (Wegovy/Trulicity/etc.). Some of his status is unclear given that he did was able to get blood today but results are not available for this encounter. Using Followed by community nephrology Followed by Podiatry / Optometry Failed mandated scheduing with PT for backpain Noted patient refusal to do renal u/s SocHx: Problem list and medications reviewed. Last Labs: Last seen 12/22 VERONICA Jimenez(edited exerpt): ...HPI: Reeds here to follow up. Upon my entering the room, he questioned why i only ordered a 30-day supply of cyclobenzaprine he then questioned his pravasatin and got angry telling me he wanted another provider and abruptly got up and left the room. Active problems - Computerized Problem List is the source for the followin. Chronic kidney disease 2. Closed fracture of distal end of radius 3. Restless legs 4. Lower urinary tract symptoms Finding 5. Gastroesophageal reflux disease without Esophagitis 6. Hyperlipidemia Unspecified 7. Low back pain 8. Osteoarthritis Unspecified site 9. Morbid obesity Due to excess calories 10. Constipation Unspecified 11. Diabetes mellitus type 2 without complication 12. Family history of cancer of colon Malignant Neoplasm of digestive organs 13. Plantar fasciitis Fibromatosis 14. Essential hypertension Primary 15. Obstructive sleep apnea syndrome 16. 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 Unfortunately does not visit was transferred to a list of requesting demands on the patient's side. Specifically the patient is request for 90-day supply on a muscle relaxant in the setting of unsteadiness as well as a history of falls needed clarification of. Patient is made aware that this is a medication that falls under the beers criteria i.e. medications which are inherently dangerous as patients get older. Patient still wants his medications as above. Please see the letter as far as his concerns. These were addressed in the time allotted which precluded any meaningful examination other than the planning for his main issues. Diabetes on metformin - unclear control; referral to pharmacy for possible use of weight loss medications as well as continuous glucose monitoring may not be unreasonable. 04/17/2023 12:06 BLOOD 5.9 H Collection DT Spec TSH 04/17/2023 12:06 SERUM 2.84 Hypertension on atenolol, at goal Hyperlipidemia on mod intendist pravastatin; pending labs Collection DT Spec CHOL HDL CHO/HDL LDL-c TRIG 04/17/2023 12:06 SERUM 240 H 37 L 6.5 163 H 199 H CKD/Renal insufficiency - Dr. Mirza Lazcano of [facility] [place] ; current status as per labs. An ultrasound of the kidneys is reinstated for the patient. CREATININE-EGFR 04/17/23 12:06 2.16 H ED on sildenafil -for higher dosing GERD on PPI Plan of care discussed with patient who articulates understanding. Chronic issues reviewed briefly; no changes to management unless specified above. RTC 2 days for video appointment for discussion of labs; otherwise in 6 months. Consult for physical therapy and pharmacy has been put into place. Up-to-date material significant with the patient for medications use and chronic pain management. A referral to the pain management has been put on hold pending retrials on other therapies. TIME ATTESTATION: Time spent directly with the patient was ( x ) 30 minutes More than 50% of the time spent with the patient included counselling regarding the admission Medical Review, History and Physical Examination, discussion of the findings, both remote and local data in the medical record, management, and patient education for the annotated medical conditions above. Discussed with patient and agrees to plan. VA and Non VA meds were reconciled. Today's documentation was made using voice recognition software. This note may contain spelling/grammatical errors secondary to this software. Patient provided copies of labs/studies and medication list. Upcoming Appointments: 01/27/2024 11:30 CWM/SO/PACT 9 06/23/2024 11:00 CWM/NO/PODIATRY A Med Reconciliation: Active Outpatient Medications (including Supplies): Active Outpatient Medications Status 1) ACCU-CHEK GUIDE (GLUCOSE) TEST STRIP USE 1 STRIP TO ACTIVE TEST BLOOD SUGARS DIRECTED BY PROVIDER 2) ACETAMINOPHEN 500MG TAB TAKE TWO TABLETS BY MOUTH ACTIVE THREE TIMES A DAY FOR BACKACHE 3) ATENOLOL 100MG TAB TAKE ONE TABLET BY MOUTH ONCE ACTIVE DAILY FOR BLOOD PRESSURE/HEART 4) CHOLECALCIF 50MCG (D3-2,000UNIT) TAB TAKE ONE TABLET ACTIVE BY MOUTH ONCE DAILY FOR VITAMIN SUPPLEMENTATION 5) GABAPENTIN 300MG CAP TAKE ONE CAPSULE BY MOUTH THREE ACTIVE TIMES A DAY 6) HYDROCHLOROTHIAZIDE 25MG TAB TAKE ONE TABLET BY MOUTH ACTIVE ONCE DAILY 7) LANCET,SOFTCLIX USE 1 LANCET TOPICALLY DIRECTED BY ACTIVE PROVIDER TO TEST BLOOD SUGAR 8) LORATADINE 10MG TAB TAKE ONE TABLET BY MOUTH ONCE ACTIVE (S) DAILY FOR ALLERGY 9) MELATONIN 3MG CAP/TAB TAKE ONE CAPSULE/TABLET BY ACTIVE MOUTH AT BEDTIME NEEDED FOR INSOMNIA 10) METFORMIN HCL 500MG 24HR SA TAB TAKE TWO TABLETS BY ACTIVE MOUTH ONCE DAILY 11) MULTIVITS W/MINERALS TAB/CAP (NO VIT K) TAKE 1 TABLET ACTIVE BY MOUTH ONCE DAILY FOR VITAMIN SUPPLEMENTATION 12) OMEPRAZOLE 20MG EC CAP TAKE ONE CAPSULE BY MOUTH ACTIVE TWICE DAILY BEFORE A MEAL FOR EXCESSIVE PRODUCTION OF STOMACH ACID 13) POTASSIUM CL 20MEQ SA TAB (DISPERSIBLE) TAKE TWO ACTIVE TABLETS BY MOUTH ONCE DAILY 14) PRAVASTATIN NA 40MG TAB TAKE ONE TABLET BY MOUTH ONCE ACTIVE DAILY FOR HIGH CHOLESTEROL (NOTE DOSE) 15) TERAZOSIN HCL 10MG CAP TAKE TWO CAPSULES BY MOUTH ACTIVE ONCE DAILY FOR HIGH BLOOD PRESSURE 16) TRIAMCINOLONE ACET 55MCG 120D WILL SPRAY INSTILL 2 ACTIVE SPRAYS INTO EACH NOSTRIL ONCE DAILY FOR ALLERGIES 17) VALSARTAN 320MG TAB TAKE ONE TABLET BY MOUTH ONCE ACTIVE DAILY FOR HIGH BLOOD PRESSURE Pending Outpatient Medications Status 1) ASCORBIC ACID 250MG TAB TAKE ONE TABLET BY MOUTH ONCE PENDING DAILY FOR VITAMIN/NUTRITION SUPPLEMENT 2) CYCLOBENZAPRINE HCL 10MG TAB TAKE ONE TABLET BY MOUTH PENDING EVERY 8 HOURS NEEDED 3) SILDENAFIL CITRATE 100MG TAB TAKE ONE TABLET BY MOUTH PENDING ONCE DAILY NEEDED TAKE 1 HOUR PRIOR TO SEXUAL ACTIVITY 20 Total Medications Medication (Local) Status No local medications found. Medication (Remote) Status No remote medications found. /leda/ ZARI MARTIN MD PHYSICIAN Signed: 01/27/2024 13:27 ZARI MARTIN HADDAM
--- NOTE | 2024-11-03 14:43 | HO.NEPHOV_ITS ---
Vital Signs 11/03/24 14:50 Height 5 ft 11 in Weight 269 lb 2 oz BMI 37.5 BP 150/70 H Blood Pressure Location Lt brachial Position Sitting Pulse 85 Pulse Source Pulse Oximeter Pulse Oximetry (%) 97 Oxygen Delivery Method Room Air Intake Visit Reasons: ENP: CKD-Conf Asset Coordinator Required: No Accompanied by: Self / Same As Patient Allergies amlodipine Allergy (Verified 11/03/24 14:47) Unknown atorvastatin (From Lipitor) Allergy (Verified 11/03/24 14:47) Unconscious chlorthalidone Allergy (Verified 11/03/24 14:47) Unknown diltiazem Allergy (Verified 11/03/24 14:47) Unknown enalapril Allergy (Verified 11/03/24 14:47) Unknown fluticasone Allergy (Verified 11/03/24 14:47) Unknown lisinopril Allergy (Verified 11/03/24 14:47) Unknown nifedipine Allergy (Verified 11/03/24 14:47) Unknown Penicillins Allergy (Verified 11/03/24 14:47) Unknown rosuvastatin Allergy (Verified 11/03/24 14:47) Unknown HPI Comments Details: I had the pleasure of seeing Danny in consultation and for transfer of his renal care to me. 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 He is a diabetic. His HbA1c has gone up a bit. He is hypertensive and is on multiple BP medications including ARB as well as HCTZ. He is not on SGLT2 i. He denies any CAD, CVA, CHF, PAD, ANTOINETTE or carotid stenosis. He does not take excess NSAID's and has no new bone or back pain. He has OMER but does not have any PND or orthopnea. He maintains good hydration and has no H/O any active malignancy. His BMI is high but does not have any H/O significant proteinuria. He has no H/O hematuria or sensori neural deafness. He has no H/O inherited renal disease , ESRD or renal transplantation. He takes Vitamin C daily. He has been taking PPI for a long time. He never had renal biopsy and his serum creatinine has been close to 1.88 [facility] Medical History (Updated 11/29/24 @ 13:40 by Joshua Mcintyre MD) Morbid (severe) obesity due to excess calories Low back pain Hyperlipidemia Gastro-esophageal reflux disease with esophagitis Family history of cancer of digestive system Essential (primary) hypertension Constipation, unspecified Closed fracture of distal end of radius Chronic kidney disease, unspecified Benign neoplasm of colon, unspecified Surgical History (Updated 11/03/24 @ 14:45 by Caity Gabriel MA) History of prostate surgery S/P correction of deviated nasal septum History of uvulopalatopharyngoplasty Hx of tonsillectomy Family History (Updated 11/03/24 @ 14:46 by Caity Gabriel MA) Mother Colon cancer Father Lung cancer Social History (Updated 11/03/24 @ 14:46 by Caity Gabriel MA) Alcohol intake: never Patient Tobacco Use Status: Never used Tobacco Review of Systems Const All systems reviewed & are unremarkable except as noted in HPI and below Physical Exam Vital Signs: Last Vital Signs Pulse 85 11/03/24 14:50 BP 150/70 H 11/03/24 14:50 Pulse Ox 97 11/03/24 14:50 Oxygen Delivery Method Room Air 11/03/24 14:50 BMI result Body Mass Index 37.5 Const General: comfortable and no acute distress Orientation/consciousness: patient oriented x3 HEENT Head: Yes normocephalic Mouth: Normal oral and palatal mucosa present Eyes EOM: EOMs intact bilaterally Neck Neck: Yes supple Resp Auscultation: clear to auscultation bilaterally Cardio Jugular venous distension: no JVD Rate: regular rate GI Palpation (GI): Soft to palpation Auscultation: normal bowel sounds General: Yes no CVA tenderness Back/Spine/Pelvis Back: no CVA tenderness Skin General skin exam: no rashes or lesions noted Neuro General: patient oriented x3 and moves all extremities Extrem General: Yes no pedal edema Results Reviewed Nephrology Results: Hgb, (14.0-18.0) 11.0 g/dl L 09/20/23 WBC, (4.8-10.8) 8.0 X10*3/uL 09/20/23 Plt Count, (160-400) 180 X10*3/uL 24 Sodium, (135-145) 143 mmol/L 09/20/23 Potassium, (3.3-5.1) 3.3 mmol/L 24 Chloride, (96-108) 106 mmol/L 04/12/24 Carbon Dioxide, (22-29) 28 mmol/L 24 BUN, (9-16) 27 mg/dL H 24 Creatinine, (0.5-1.4) 1.94 mg/dL H 24 Calcium, (8.4-10.2) 9.0 mg/dL 24 Urine Protein, (Neg-Trace) Trace mg/dL 09/20/23 Assessment & Plan Assessment & Plan (1) CKD stage 3b, GFR 30-44 ml/min: Code(s): N18.32 - Chronic kidney disease, stage 3b Category: Medical (2) Essential (primary) hypertension: Code(s): I10 - Essential (primary) hypertension Category: Medical Plan Danny has CKD Stage 3 B for some time. He is hypertensive and diabetic. He is on ARB. I shall repeat his renal imaging with time and also will order a 24 hour urine for creatinine clearance. He avoids NSAID's and maintain good hydration. I ordered blood work and is his serum creatinine is stable. I plan to initiate him on SGLT2 i @ next visit. I discussed all these and answered his questions. Further management is pending evololving data. Orders: Orders Parathyroid Hormone Intact 3 Weeks N18.32 - Chronic kidney disease, stage 3b Protein Creatinine Ratio, Ur 3 Weeks N18.32 - Chronic kidney disease, stage 3b Calcium 3 Weeks N18.32 - Chronic kidney disease, stage 3b Electrolytes 3 Weeks N18.32 - Chronic kidney disease, stage 3b Blood Urea Nitrogen 3 Weeks N18.32 - Chronic kidney disease, stage 3b Creatinine 3 Weeks N18.32 - Chronic kidney disease, stage 3b Coding Level of Care Code New Pt Level 4 (95454) Diagnoses CKD stage 3b, GFR 30-44 ml/min N18.32 Essential (primary) hypertension I10
[2024-11-03 14:50] VITALS: BP 150/70; PULSE 85; O2SAT 97; BMI 37.5
== END 2024-11-03 15:52 | disposition home or self-care (01) ==
LOC: HO.HKAS 14:07
PROVIDERS: PCP Nurse Practitioner Family; Visit Provider Internal Medicine Nephrology
DX: N18.32 Chronic kidney disease, stage 3b (principal); I10 Essential (primary) hypertension
CPT/HCPCS: 99204

== ENCOUNTER 2025-06-07 14:49 | Emergency (ER) | payer OTHER, SELFPAY ==
--- NOTE | ~2025-06-07 | XR_ITS ---
EXAMINATION: XR CHEST CLINICAL INFORMATION: cough COMPARISON: 09/20/2023. TECHNIQUE: 2 views of the chest were obtained. FINDINGS: The cardiac, hilar, and mediastinal contours are normal. Aortic mural calcification. The lungs are clear bilaterally. There is no pneumothorax or pleural effusion. There is no focal osseous or soft tissue abnormality. Mild spinal degenerative changes. XR/XR chest 2V IMPRESSION: No active pulmonary disease. Electronically signed by: Papo Head MD 06/07/2025 03:58 PM EST
[2025-06-07 14:55] VITALS: BP 108/52; PULSE 78; RESP 18; TEMP 36.9; O2SAT 99; BMI 37.5
--- NOTE | 2025-06-07 15:02 | ED_ITS ---
HPI - General Adult General Chief complaint: Upper Respiratory Symptoms Stated complaint: Cough Time Seen by Provider: 06/07/25 17:41 Source: patient and family (patient's ) Mode of arrival: wheelchair Limitations: no limitations History of Present Illness ED Provider: Mary Hopkins PA-C HPI narrative: Patient is a 70 year old male with a history of HTN, CKD stage 3b, GERD, and HLD presenting to the emergency department today with a cough and weakness. Patient states that over the last 6 days he has felt generally unwell with weakness and a cough. Patient denies any other complaints at this time. Onset (ago): day(s) Relieving factors: none Exacerbating factors: none Associated symptoms: cough and weakness Treatments prior to arrival: none Related Data Home Medications ?Medication ?Instructions ?Recorded ?Confirmed ascorbic acid (vitamin C) 250 mg 250 mg PO DAILY 11/03 tablet aspirin 81 mg tablet,delayed 81 mg PO Q OTHER DAY 10/09 01/01 release atenolol 100 mg tablet 100 mg PO DAILY 11/03/24 cholecalciferol (vitamin D3) 50 50 mcg PO DAILY mcg (2,000 unit) capsule cyclobenzaprine 10 mg tablet 30 mg PO BEDTIME 11/03/24 gabapentin 300 mg capsule 900 mg PO BEDTIME 11/03/24 hydrochlorothiazide 25 mg tablet 25 mg PO DAILY loratadine 10 mg tablet 10 mg PO DAILY 11/03/24 melatonin 3 mg capsule 6 mg PO BEDTIME PRN 11/03/24 metformin 500 mg tablet 500 mg PO BID 11/03/24 multivitamin 1 tab PO DAILY 11/03/24 omeprazole 20 mg capsule,delayed 40 mg PO DAILY release potassium chloride 20 mEq 40 meq PO DAILY 11/03/24 tablet,extended release sildenafil 100 mg tablet 100 mg PO DAILY PRN 11/03/24 terazosin 10 mg capsule 20 mg PO BEDTIME 11/03/24 triamcinolone acetonide 55 mcg 2 spray intranasal GAETANO Y 11/03/24 nasal spray aerosol valsartan 320 mg tablet 320 mg PO DAILY 11/03/24 zinc gluconate 50 mg tablet 25 mg PO Q OTHER DAY 11/03 Allergies Allergy/AdvReac Type Severity Reaction Status Date / Time amlodipine Allergy Unknown Verified 06/07/25 15:01 atorvastatin (From Lipitor) Allergy Unconscious Verified 06/07/25 15:01 chlorthalidone Allergy Unknown Verified 06/07/25 15:01 diltiazem Allergy Unknown Verified 06/07/25 15:01 enalapril Allergy Unknown Verified 06/07/25 15:01 fluticasone Allergy Unknown Verified 06/07/25 15:01 lisinopril Allergy Unknown Verified 06/07/25 15:01 nifedipine Allergy Unknown Verified 06/07/25 15:01 Penicillins Allergy Unknown Verified 06/07/25 15:01 rosuvastatin Allergy Unknown Verified 06/07/25 15:01 Review of Systems Constitutional: Constitutional: Reports as per HPI Eyes: Eyes: Reports as per HPI ENT: Reports as per HPI Cardiovascular: Cardiovascular: Reports as per HPI Respiratory: Respiratory: Reports as per HPI Gastrointestinal: Gastrointestinal: Reports as per HPI Genitourinary: Genitourinary: Reports as per HPI Musculoskeletal: Musculoskeletal: Reports as per HPI Integumentary/Breasts: Skin/Breast: Reports as per HPI Neurologic: Reports as per HPI Psychiatric: Psychiatric: Reports as per HPI Endocrine: Endocrine: Reports as per HPI Hematologic/Lymphatic: Hematologic/Lymphatic: Reports as per HPI Allergic/Immunologic: Allergic/Immunologic: Reports as per HPI PMF Past Medical History Attestation statement: The following information was validated with the patient. (all information validated with the patient's ) Source: old records reviewed, obtained from family (patient's provided additional history and confirmed the history provided by the patient.) and nursing notes reviewed Medical History Morbid (severe) obesity due to excess calories Low back pain Hyperlipidemia Gastro-esophageal reflux disease with esophagitis Family history of cancer of digestive system Essential (primary) hypertension Constipation, unspecified Closed fracture of distal end of radius Chronic kidney disease, unspecified Benign neoplasm of colon, unspecified Surgical History History of prostate surgery S/P correction of deviated nasal septum History of uvulopalatopharyngoplasty Hx of tonsillectomy Family History Family History Mother Colon cancer Father Lung cancer Social History Social History Alcohol intake: never Patient Tobacco Use Status: Never used Tobacco Advance Directives: No Advance Directives Information Provided: No Do you have a plan to hurt others: No Plan Physical Exam ED Vital Signs: Vital Signs - 24 hr 06/07/25 14:55 06/07/25 18:39 Temperature 98.4 F 98.4 F Pulse Rate 78 78 Respiratory Rate 18 18 Blood Pressure 108/52 L 108/52 L Pulse Oximetry 99 99 Oxygen Delivery Method Room Air Room Air BMI result Body Mass Index 37.5 Const General: cooperative, alert and awake Orientation/consciousness: patient oriented x3 HENMT Head: Yes normal to inspection and Yes atraumatic Ears: hearing grossly normal bilaterally and external ears normal General nose exam: Normal external nose present, no nasal discharge noted and no epistaxis Face and sinus: Yes normal facial exam, No abrasion and No laceration Mouth: Normal oral and palatal mucosa present, no drooling and no muffled voice Eyes General: appearance normal, both eyes and all related structures Periorbital: periorbital findings normal Eyelids: Yes eyelids normal Conjunctivae: conjunctivae normal Pupils: Equal, round and reactive pupils present EOM: EOMs intact bilaterally Resp Effort & Inspection: normal respiratory effort and able to speak in complete sentences Neuro General: patient oriented x3, moves all extremities and CN's II-XI intact bilaterally Cranial nerves: Yes Equal, round and reactive pupils present Cognition (Neuro): normal cognition Extrem General: Yes full ROM Psych Appearance: grossly normal Mental Status: mental status grossly normal Attitude: cooperative Course Course Course Narrative: Rapid medical examination performed in triage by Mary Hopkins PA-C: Patient is a 70 year old male presenting to the emergency department with a cough. Detailed physical exam and review of systems are deferred to the food counter attendant. Imaging and swabs ordered. Patient placed back in the waiting room pending room availability and results. Medical Decision Making Medical Decision Making MDM Narrative: Patient is a 70 year old male with a history of HTN, CKD stage 3b, GERD, and HLD presenting to the emergency department today with a cough and weakness. Patient's physical exam was as noted in the physical exam portion of this note. Patient's chest x-ray showed no acute process. Patient's influenza testing was positive. Patient's RSV + COVID-19 testing was negative. I explained my physical exam findings as well as all test results to the patient and the patient's . I answered all questions asked by the patient and the patient's . I stressed the importance of the patient taking his medication as directed (either prescribed or as the over the counter packaging recommends). I stressed the importance of the patient following up with his primary care provider. I stressed the importance of the patient returning to the emergency department immediately if his symptoms were to worsen or if he were to develop any dizziness, shortness of breath, difficulty breathing, chest pain, blurry vision, loss of vision, nausea, vomiting, abdominal pain, fever, chills, back pain, or any other complaints. Patient and the patient's verbalized agreement and understanding with this treatment plan and discharge. Differential Diagnosis Differential Diagnoses: The differential diagnosis associated with the presentation includes Influenza RSV COVID-19 Viral illness Admission/Observation Consideration of admission/observation: Escalation of care including admission/observation considered Patient would have been admitted to the hospital had his work up had any findings where hospital admission was appropriate and his clinical presentation warranted hospital admission. Lab Data [facility] Lab Attestation statement: I reviewed the patient's lab results. My interpretation of these results are in the [facility] Rationale portion of this note. Labs: Lab Results 06/07/25 Range/Units 16:04 Influenza Type A (PCR) POSITIVE A (Negative) Influenza Type B (PCR) NEGATIVE (Negative) RSV RNA Qual (PCR) NEGATIVE (Negative) SARS-CoV-2 RNA (RT-PCR) NEGATIVE (Negative) Independent Interpretation I performed an independent interpretation of an: Plain X-Ray Interpretation: My interpretation is in agreement with the radiologist's impression of this imaging study as written below. EXAMINATION: XR CHEST CLINICAL INFORMATION: cough COMPARISON: 09/20/2023. TECHNIQUE: 2 views of the chest were obtained. FINDINGS: The cardiac, hilar, and mediastinal contours are normal. Aortic mural calcification. The lungs are clear bilaterally. There is no pneumothorax or pleural effusion. There is no focal osseous or soft tissue abnormality. Mild spinal degenerative changes. XR/XR chest 2V IMPRESSION: No active pulmonary disease. Electronically signed by: Papo Head MD 06/07/2025 03:58 PM [facility] Dictated By: Papo Head MD Signed By: Electronically signed by Papo Head MD 06/07/25 1558 Radiology Impression Discussion of test interpretation with radiology: I have reviewed the radiologist's reading. Independent Historian Clinical information obtained from an independent historian. History obtained from or confirmed by: Spouse (patient's provided additional history and confirmed the history provided by the patient.) Prescription Management I considered prescription management with: Antiviral (I considered prescribing tamiflu however, the patient is out of the prescription window.) Discharge Plan Discharge Clinical Impression: Influenza Patient Disposition: Home, Self-Care Instructions: Influenza (DC) Additional Instructions: You are positive for influenza. Your chest x-ray showed no evidence of pneumonia. IF you are prescribed home medications and/or you are taking over the counter medications at home - it is very important you continue to do so as prescribed / directed unless told otherwise by a healthcare provider. Follow up with your primary care provider. Do your best to stay well hydrated and rest. Return to the emergency department immediately if your symptoms worsen or if you develop any numbness, tingling, dizziness, shortness of breath, difficulty breathing, chest pain, blurry vision, loss of vision, nausea, vomiting, abdominal pain, fever, chills, back pain, or any other complaints. If you do not have a primary care provider - call any of the below numbers to establish and follow up with a primary care provider. [facility] [place] [phone] [place] [address], [id number] [facility] [place] [place]) [phone] [place] [address], [address] [facility], [address] [facility] [place] [place]) [phone] [place] [address], [address] [facility], [address] [facility] [place] [phone] [place] [address], [address] [facility], [address] [facility] [phone] [place] [address], [address] Please see the information below about our Patient Portal. If you are not yet enrolled in the [facility] Patient Portal, you will receive an enrollment email invitation following your visit to any [facility] care setting. You may also self-enroll in the Patient Portal by visiting our website: [email or web address] The following information is required to access the Patient Portal: - Your [facility] Medical [place] Number - Your personal home email address (must match what is in your electronic medical record, Registration staff can assist with this) - Name - Date of Capabilities of the Patient Portal: - Message some providers - View upcoming appointments - Access your health summary, medical history, and visit history - View current conditions and allergies - View procedure and lab results - View your medications, including guidelines, side effects, and precautions - Complete pre-appointment questionnaires requested by your provider - Ready summary reports of your office visits and procedures To access the Patient Portal Mobile [employer], follow these directions: - Search [employer] in the [employer] Store or [employer] Store - Download the [employer] - Search for [facility] - Enter your login/password Prescriptions: No Action aspirin 81 mg tablet,delayed release (DR/EC) 81 mg PO Q OTHER DAY atenolol 100 mg tablet 100 mg PO DAILY cyclobenzaprine 10 mg tablet 30 mg PO BEDTIME gabapentin 300 mg capsule 900 mg PO BEDTIME hydrochlorothiazide 25 mg tablet 25 mg PO DAILY loratadine 10 mg tablet 10 mg PO DAILY melatonin 3 mg capsule 6 mg PO BEDTIME PRN metformin 500 mg tablet 500 mg PO BID omeprazole 20 mg capsule,delayed release(DR/EC) 40 mg PO DAILY potassium chloride 20 mEq tablet extended release 40 meq PO DAILY sildenafil 100 mg tablet 100 mg PO DAILY PRN Rx Instructions: administer 30 minutes to 4 hours before activity terazosin 10 mg capsule 20 mg PO BEDTIME triamcinolone acetonide 55 mcg aerosol,spray 2 spray intranasal DAILY Rx Instructions: administer into each nostril valsartan 320 mg tablet 320 mg PO DAILY zinc gluconate 50 mg tablet 25 mg PO Q OTHER DAY multivitamin Tablet 1 tab PO DAILY ascorbic acid (vitamin C) 250 mg tablet 250 mg PO DAILY cholecalciferol (vitamin D3) 50 mcg (2,000 unit) capsule 50 mcg PO DAILY Interventions: ED Discharge Assessment Last Done: 06/07/25 18:39 Discharge Date/Time: 06/07/25 18:39 Print Language: Samoan
[2025-06-07 16:52] LABS: Resp Syncy Virus RNA Qual PCR NEGATIVE (Negative); SARS COV2 PCR INHOUSE NEGATIVE (Negative)
--- OUTSIDE RECORDS SUMMARY | 2025-06-07 17:55 | XMS_ITS | Clinical Summary ---
Author Organization [facility] Address [address] [address] Phone Care Team Providers Care Needle Loom Tender Name Role Phone Godfrey Cerda MD Unavailable [phone] Unknown, Unknown Primary Care Provider Nancie katz Medications cyclobenzaprine (FLEXERIL) 10 MG tablet 10 mg. 1 Active ascorbic acid, vitamin C, (VITAMIN C) 250 MG tablet 250 mg. 1 Active atenolol (TENORMIN) 100 MG tablet 100 mg. 1 Active cholecalciferol (VITAMIN D3) 2,000 unit tablet Take 1 tablet by mouth daily. 1 Active finasteride (PROSCAR) 5 mg tablet PROSCAR 5 MG TABS 7 Active gabapentin (NEURONTIN) 600 MG tablet 600 mg. 1 Active hydroCHLOROthia zide (HYDRODIURIL) 25 MG tablet 25 mg. 8 Active ibuprofen (ADVIL,MOTRIN) 400 MG tablet 400 mg. 1 Active metFORMIN (GLUCOPHAGE-XR) 500 MG 24 hr tablet 2,000 mg. 1 Active losartan (COZAAR) 100 MG tablet COZAAR 100 MG TABS 8 Active loratadine (CLARITIN) 10 mg tablet 10 mg. 1 Active omeprazole (PRILOSEC) 20 MG capsule 20 mg. 1 Active potassium chloride SA (KLOR-CON M) 20 MEQ ER tablet 60 mEq. 1 Active rosuvastatin (CRESTOR) 5 MG tablet 2.5 mg. 1 Active terazosin (HYTRIN) 10 MG capsule 20 mg. 1 Active spironolactone (ALDACTONE) 25 MG tablet 25 mg. 1 Active valsartan (DIOVAN) 320 MG tablet 320 mg. 1 Active triamcinolone (NASACORT AQ) 55 mcg/actuation nasal inhaler INHALE 2 SPRAYS INTO EACH NOSTRIL EVERY DAY 1 Active verapamiL (CALAN-SR) 180 MG CR tablet VERAPAMIL HCL ER 180 MG CR-TABS 8 Active zinc sulfate 50 mg zinc (220 mg) Tab Take 220 mg by mouth daily. Active Active Problems Problem Noted Date Diagnosed Date Benign essential hypertension 05/08/2022 Assessment & Plan (05/08/2022 2:21 PM EST): Stable on current medication regimen. Continue. Check BMP in 6 months. Type 2 diabetes mellitus wit hout complication, without long-term current use of insulin 05/08/2022 Assessment & Plan (05/08/2022 2:21 PM EST): Stable, recent A1C through [place] was 6.3. Continue metformin. Repeat A1C in 6 months. Mixed hyperlipidemia 05/08/2022 Assessment & Plan (05/08/2022 2:22 PM EST): I do not have a recent lipid panel, taking Crestor- no SE. Continue. Refusing to have lab drawn. Lipid panel ordered for his 6 month return. Benign prostatic hyperplasia without lower urinary tract symptoms 05/08/2022 Assessment & Plan (05/08/2022 2:23 PM EST): Stable on current medications, continue. Gastroesophageal reflux disease without esophagi tis 05/08/2022 Assessment & Plan (05/08/2022 2:22 PM EST): Stable on current regimen. Continue Encounter for wellness examination 05/08/2022 Assessment & Plan (05/08/2022 2:23 PM EST): The patient was counseled on testicular self exam. He was counseled on age appropriate screening tests. He was encouraged to diet and exercise. Obesity (BMI 30-39.9) 05/08/2022 Assessment & Plan (05/08/2022 2:22 PM EST): Advised diet, exercise, weight loss. Immunizations Immunization Administration Dates Next Due COVID-19 (Pre-04/01) Moderna Vaccine, mRNA, PF 09/29/2020,09/01/2020 DTaP, unspecified formulation 03/15/2015 INFLUENZA, SPLIT VIRUS, TRIV ALENT W/ PRESERVATIVE IM 02/28/2012,04/11/2000,04/07/1999,03/21 Influenza Quadrivalent Adjuv anted Preservative Free IM 04/03/2022 Influenza Quadrivalent Prese rvative Free IM 03/29/2021,03/03/2020,03/17/2019 Influenza, Unspecified Formulation 03/27,04/11/2017,03/26/2016,03/15,03/21/2014,03/13/2013,04/13/2008 ,03/27/2007,03/10/2001 Pneumococcal polysaccharide PPSV23 10/31/2016, Td, unspecified formulation 03/15/2015, 9 Tdap 03/15/2015 Tetanus toxoid, unspecified formulation 07/16/2008 Zoster live 12/24/2016 Zoster recombinant 03/19/2018,10/03/2017 Social History Tobacco Use Types Packs/Day Years Used Date Smoking Tobacco: Never Smokeless Tobacco: Never Tobacco Cessation:Counseling Given: Not Answered Education Answer Date Recorded Are you interested in more education? Not on wilfred e 10/04/2022 Are you concerned about learning? Not on file 10/04/2022 No 10/04/2022 No 10/04/2022 Digital Access Answer Date Recorded No 11/05/2022 No 11/05/2022 No 11/05/2022 Reliable internet access at home? Not on file 11/05/2022 Device with a working camera? Not on file Sex and Gender Information Value Date Recorded Sex Assigned at Male 03/07/2022 3:40 PM EDT Legal Sex Male 7:32 PM EST Gender Identity Male 03/07/2022 3:40 PM EDT Sexual Orientation Straight 03/07/2022 3: 40 PM EDT Last Filed Vital Signs Vital Sign Reading Time Taken Comments Blood Pressure 130/68 05/07/2022 3:05 PM EST Pulse 84 05/07/2022 2:31 PM EST Temperature - - Respiratory Rate 18 05/07/2022 2:31 PM EST Oxygen Saturation 99% 05/07/2022 2:31 PM EST Inhaled Oxygen Concentration - - Weight 124.3 kg (274 lb) 05/07/2022 2:31 PM EST Height 181.5 cm (5' 11.46 ) 05/07/2022 2:[address] Body Mass Index 37.73 05/07/2022 2:31 PM EST Plan of Treatment Health Maintenance Due Date Last Done Comments BLOOD PRESSURE 1955 HEPATITIS C SCREENING 1974 SMOKING STATUS SCREENING (Once After 26 Yrs) 1982 COLOGUARD 2001 FIT TEST 2001 FOBT 2001 SIGMOIDOSCOPY 2001 VIRTUAL COLONOSCOPY 2001 PNEUMOCOCCAL VACCINES (50+ years) (2 of 2 - PCV) 10/31/2017 10/31/2016, 03/10/2000 DIABETIC EYE EXAM 05/08/2022 HEMOGLOBIN A1C 10/14/2022 04/16/2022 CREATININE LEVEL 04/16/2023 04/16/2022 POTASSIUM LEVEL 04/16/2023 04/16/2022 DEPRESSION SCREENING 12/08/2023 12/07/2022, 12/08/19 23 INFLUENZA VACCINE (#1) 2025 2, 03/29/2021, 03/03/2020, Additional history exists COVID-19 VACCINE ( season) 2025 02/20/2022, 09/19/2021, 04/11/2021, Additional history exists Adult Td,Tdap Booster 03/15/2025 03/15/2015 , 03/15/2015, 06/10/2008 COLONOSCOPY 11/07/2027 11/06/2022 COLORECTAL CANCER SCREENING 11/07/2027 RSV VACCINE (1 - 1-dose 75+ series) 2031 ZOSTER VACCINES Completed 03/19/2018, 09/09, 12/24/2016 HEPATITIS A VACCINES Aged Out No long er eligible based on patient's age to complete this topic HIB VACCINES Aged Out No longer eligi ble based on patient's age to complete this topic MENINGOCOCCAL VACCINES (ACWY) Aged Out No longer eligible based on patient's age to complete this topic MENINGOCOCCAL VACCINES (B) Aged Out N o longer eligible based on patient's age to complete this topic Medical Devices Not on file Procedures Procedure Name Priority Date/Time Associated Diagnosis Comments ENDOSCOPY, COLON 11/06/2022 7:58 AM EDT OUTSIDE HEMOGLOBIN A1C Routine 04/16/2022 OUTSIDE POTASSIUM LEVEL Routine 04/16/2022 OUTSIDE SERUM CREATININE LEVEL Routine 04/16/2022 from Last 3 Months or Most Recently Relevant to Health Maintenance Results * ENDOSCOPY, COLON (11/06/2022 7:58 AM EDT) 11/06/2022 7:58 AM EDT Narrative Procedure Note Unknown, Unknown, MD - 11/06/2022 7:58 AM EDT [facility] [address] [place] [address] Colonoscopy Report Signed Patient: Danny Valenzuela MR# [id number] : 6Acct:[id number] Age/Sex: 67 / M ADMDate: 11/06/22 Loc: ENDO Attending Dr: Peter Pineda MD Ordering Physician: Date of Service: Procedure(s): Accession Number(s): cc: STALIN Mcneil [facility] ([id number]) Gastroenterology Patient Name: Danny Valenzuela Procedure Date: 11/06/2022 7:58 AM Date of : 1955 Admit Type: Outpatient Age: 67 Room: Endoscopy Gender: Male Note Status: Finalized Attending MD: Peter Amaral MD Instrument Name: [id number] (ELVER) Procedure: Colonoscopy Indications: Screening in patient at increased risk: Family historyof 1st-degree relative with colorectal cancer Comorbidities: Hypertension, Obesity, Type 2 diabetes mellitus, Hyperlipidemia, Sleep apnea Impression: - Two 4 to 5 mm polyps in the ascending colon, removed with a cold biopsy forceps. Resected and retrieved. - Diverticulosis in the sigmoid colon and in the descending colon. - The examination was otherwise normal on direct and retroflexion views. Recommendation: - [facility] The signs and symptoms of potential delayedcomplications were discussed with the patient. Return to normal activities tomorrow. Written discharge instructionswere provided to the patient. - Discharge patient to home (ambulatory). - Await pathology results. - Repeat colonoscopy in 5 years for surveillance. - High fiber diet and stool softeners as needed. Patient Profile: 67 y.o Male with family history of colon cancer. Last colonoscopy in 2010. Providers: Peter Amaral MD (Doctor), Vivian Hope RN, Pal Florentino RN Referring MD: Adelaida Mcneil (Referring MD) Medicines: Monitored Anesthesia Care, Propofol total dose 270 mgIV Complications: No immediate complications. Procedure: Pre-Anesthesia Assessment: - Prior to the procedure, a History and Physical was performed, and patient medications and allergies were reviewed. The risks and benefits of the procedure andthe sedation options and risks were discussed with the patient. All questions were answered and informedconsent was obtained. Patient identification and proposed procedure were verified by the physician, the nurseand the quick mixer operator in the procedure room in the endoscopy suite. Mental Status Examination: alert and oriented. Airway Examination: normal oropharyngeal airway andneck mobility. Respiratory Examination: clear toauscultation. CV Examination: normal. Prophylactic Antibiotics: The patient does not require prophylactic antibiotics.Prior Anticoagulants: The patient has taken no previous anticoagulant or antiplatelet agents. ASA Grade Assessment: II - A patient with mild systemic disease. After reviewing the risks and benefits, the patientwas deemed in satisfactory condition to undergo theprocedure. The anesthesia plan was to use monitored anesthesiacare (MAC). This assessment was completed before the administration of sedation at 08:36 AM. Prior to the endoscopy, the entire procedure wasreviewed in detail. The potential of complications including but not limitedto bleeding, perforation, need for emergent surgery, infection, adverse medication reactions, alternatives including nonperformance of this examination wasreviewed and consent then obtained. After I obtained informed consent, the scope was passed under direct vision. Throughout the procedure, the patient's bloodpressure, pulse, and oxygen saturations were monitoredcontinuously. The Colonoscope was introduced through the anus and advanced to the cecum, identified by appendicealorifice and ileocecal valve. The colonoscopy was somewhat difficult due to significant looping. Successful completion of the procedure was aided by withdrawingand reinserting the scope and straightening and shorteningthe scope to obtain bowel loop reduction. The patient tolerated the procedure well. The quality of the bowel preparation was good. The ileocecal valve, theappendiceal orifice and the rectum were photographed. Findings: Two sessile polyps were found in the ascending colon. The polypswere 4 to 5 mm in size. These polyps were removed with a cold biopsyforceps. Resection and retrieval were complete. Estimated blood loss: none. Multiple medium-mouthed diverticula were found in the sigmoid colonand descending colon. The exam was otherwise without abnormality on direct andretroflexion views. Peter Amaral MD Peter Amaral MD 11/06/2022 9:13:26 AM This report has been signed electronically. Number of Addenda: 0 Note Initiated On: 11/06/2022 7:58 AM Scope In: 8:41:40 AM Scope Out: 9:02:36 AM Dictated By: Peter Pineda MD Signed By: <Electronically signed by Peter Pineda MD inOV> 11/06/22 0913 us Unknown Unknown GI PROCEDURE ORDERABLES Final Result * Outside Potassium Level (04/16/2022) Potassium level - External 4.7 3.4 - 5.0 mmol/L Comment:'[facility] Historical Provider LAB BLOOD ORDERABLES Hallie l Result * Outside HbA1c (04/16/2022) Hemoglobin A1c - External 6.3 % Comment:[place] Historical Provider LAB BLOOD ORDERABLES Hallie l Result * (ABNORMAL) Outside Serum Creatinine Level (04/16/2022) Creatinine, serum - External 2.14(A) 0.8 - 1.3 mg/dL Comment:'[facility] Historical Provider LAB BLOOD ORDERABLES Hallie l Result from Last 3 Months or Most Recently Relevant to Health Maintenance Insurance MEDICARE PART A & B Member Subscriber Plan / Payer (Ef fective 2021-) Name:Danny Valenzuela Member ID:[id number] Relation to Subscriber:Self Name:Danny Valenzuela Subscriber ID:[id number] Payer ID:[id number] Group ID:Not on file Type:Medicare Address: [employer] [address] [place] [id number] [place] [address] MEDICARE SUPPLEMENT MEDICARE PART A & B MEDICARE PART A & B Member Subscriber Plan / Payer (Ef fective 2021) Name:Danny Valenzuela Member ID:[id number] Relation to Subscriber:Self Name:Danny Valenzuela Subscriber ID:[id number] Payer ID:[id number] Group ID:Not on file Type:Medicare Address: [employer] [address] [place] [id number] [place] [address] MEDICARE SUPPLEMENT MEDICARE PART A & B MEDICARE PART A & B Member Subscriber Plan / Payer ( fective 2021-Present) Name:Danny Valenzuela Member ID:[id number] Relation to Subscriber:Self Name:Danny Valenzuela Subscriber ID:[id number] Payer ID:[id number] Group ID:Not on file Type:Medicare Address: [facility] [employer] [address] [place] [phone] MEDICARE PART A & B MEDICARE SUPPLEMENT MEDICARE PART A & B [facility] MEDICARE SUPPLEMENT MEDICARE PART A & B [facility] MEDICARE SUPPLEMENT MEDICARE PART A & B [facility] MEDICARE SUPPLEMENT Advance Directives For more information, please contact: [phone] (9AM - 5PM [facility], Saturday-Saturday) Documents on File Type Date Recorded Patient Helminthologist Expl anation Healthcare Proxy 08/01/2022 1:19 PM [facility] Care Teams Needle Loom Tender Relationship Specialty Start Date End Date Unknown, Unknown, PCP - General 01/02/23 Godfrey Cerda MD [facility] [address] [address] [email or web address] Historical LMR Provider 08/21/18 Additional Source Comments The information contained in this document represents components of the legal health record. It is not the complete legal health record.[facility]
--- OUTSIDE RECORDS SUMMARY | 2025-06-07 17:55 | XMS_ITS | Clinical Summary ---
Author Organization [facility] Address [address] [facility] [address] [place] [address] Phone Care Team Providers Care Assistant Warehouse Manager Name Role Phone Lee Sanchez MD Primary Care Provider Allergies Active Allergy Reactions Criticality Noted Date Comments Amlodipine 01/13/2023 Atorvastatin 01/13/2023 Chlorthalidone 01/13/2023 Diltiazem 01/13/2023 Enalapril 01/13/2023 Fluticasone 01/13/2023 Lisinopril 01/13/2023 Nifedipine 01/13/2023 Penicillin G 03/15/2013 Rosuvastatin Other (see comments) 04/30/2023 Medications atenolol (TENORMIN) 100 MG tablet Take 100 mg by mouth 1 (one) time each day 1 Active cholecalciferol (VITAMIN D-3 SUPER STRENGTH) 50 MCG (1999) tablet Take 50 mcg by mouth 1 (one) time each day 1 Active cyclobenzaprine (FLEXERIL) 10 MG tablet Take 10 mg by mouth 3 (three) times a day if needed 1 Active hydroCHLOROthia zide 25 MG tablet Take 25 mg by mouth 1 (one) time each day 8 Active loratadine (CLARITIN) 10 MG tablet Take 10 mg by mouth 1 (one) time each day 1 Active omeprazole (PriLOSEC) [address] capsule Take 20 mg by mouth in the morning and 20 mg in the evening. 1 Active pravastatin (PRAVACHOL) 20 MG tablet Take 20 mg by mouth 1 (one) time each day 3 Active terazosin (HYTRIN) 10 MG capsule Take 20 mg by mouth every night 1 Active triamcinolone (NASACORT) 55 MCG/ACT nasal inhaler Administer 2 sprays into each nostril 1 (one) time each day 1 Active valsartan (DIOVAN) 320 MG tablet Take 320 mg by mouth 1 (one) time each day 1 Active gabapentin (NEURONTIN) 300 MG capsule Take 300 mg by mouth in the morning and 300 mg in the evening and 300 mg before bedtime. 1 Active metFORMIN XR (GLUCOPHAGE-XR) 500 MG 24 hr tablet Take 500 mg by mouth in the morning and 500 mg in the evening. 1 Active potassium chloride (KLOR-CON M20) 20 MEQ CR tablet Take 40 mEq by mouth in the morning and 40 mEq in the evening. 1 Active ascorbic acid (VITAMIN C) 250 MG tablet Take 250 mg by mouth 1 (one) time each day 1 Active Melatonin 3 MG capsule Take 3 mg by mouth every night Active Multiple Vitamin (multivitamin) tablet Take 1 tablet by mouth 1 (one) time each day Active Active Problems Problem Noted Date Diagnosed Date Chronic kidney disease stage 3B 08/21/2023 Diabetes mellitus, not otherwise specified 08/20 Hypertension 08/21/2023 Dyslipidemia 08/21/2023 Benign prostatic hyperplasia 08/21/2023 Obstructive sleep apnea syndrome 12/24/2007 Overview (08/21/2023): Jul 20, 2013 Entered By: JESSIE JOHNSON NP Comment: s/p uvulopharyngopalatoplasty Social History Tobacco Use Types Packs/Day Years Used Date Smoking Tobacco: Never Assessed Sex and Gender Information Value Date Recorded Sex Assigned at Not on file Legal Sex Male 10:29 AM EST Gender Identity Not on file Sexual Orientation Not on file Last Filed Vital Signs Vital Sign Reading Time Taken Comments Blood Pressure 142/73 02/24/2024 8:11 AM EDT Pulse 64 02/24/2024 8:11 AM EDT Temperature - - Respiratory Rate - - Oxygen Saturation 99% 08/21/2023 8:02 AM EDT Inhaled Oxygen Concentration - - Weight 109 kg (240 lb) 02/24/2024 8:05 AM EDT Height - - Body Mass Index - - Plan of Treatment Health Maintenance Due Date Last Done Comments Colorectal Cancer Screening: Annual FOBT 2005 Colorectal Cancer Screening: Colonoscopy 2005 Colorectal Cancer Screening: Sigmoidoscopy 2005 Pneumococcal Vaccine: 50+ Years (3 of 3 - PCV) 10/31/2017 10/31/2016, 03/10/2000 Diabetes: Hemoglobin A1C 05/21/2023 Diabetes: Pedal Pulse Checked 05/21/2023 Diabetes: Sensory Foot Exam 05/21/2023 Diabetes: Visual Foot Exam 05/21/2023 Diabetes: Ophthalmology Exam 12/22/2024 12/23/2023 Influenza Vaccine (#1) 2025 , 03/29/2021, 03/03/2020, Additional history exists Hepatitis B Vaccine Aged Out No longe r eligible based on patient's age to complete this topic Insurance [employer] 1,2,3 (VACCN) [employer] 1,2,3 (VACCN) Medicare Care Teams Assistant Warehouse Manager Relationship Specialty Start Date End Date Lee Sanchez MD [address] [place] [address] PCP - General Internal Medicine 02/24/24
--- OUTSIDE RECORDS SUMMARY | 2025-06-07 17:55 | XMS_ITS | Encounter Summary ---
Author Organization [facility] Address [address] [place] [address] Phone Care Team Providers Care Casino Floorperson Name Role Phone Godfrey Cerda MD Unavailable [phone] Zain Yuen CAN DOFFER Primary Care Provider [phone] Unknown, Unknown Primary Care Provider Nancie katz Encounter Details Date Type Department Care Team (Late st Contact Info) Description 08/14/2022 Telephone [facility] [address] [place] [address] Zain Yuen, CAN DOFFER [address] [address] [email or web address] Social History Tobacco Use Types Packs/Day Years Used Date Smoking Tobacco: Never Smokeless Tobacco: Never Sex and Gender Information Value Date Recorded Sex Assigned at Male 03/07/2022 3:40 PM EDT Legal Sex Male 7:32 PM EST Gender Identity Male 03/07/2022 3:40 PM EDT Sexual Orientation Straight 03/07/2022 3: 40 PM EDT documented as of this encounter Plan of Treatment Not on file documented as of this encounter Visit Diagnoses Not on filedocumented in this encounter Additional Health Concerns Assessment Noted Time PHQ-9 Depression Total Score: 15 022 9:22 AM EST PHQ-2 Depression Total Score: 4 05/02/20 22 9:22 AM EST documented as of this encounter Care Teams Casino Floorperson Relationship Specialty Start Date End Date Zain Yuen NP [address] [facility] [address] [place] [address] [email or web address] PCP - General Nurse Practitioner 04/30/22 01/01/23 Unknown, Unknown, MD PCP - General 01/02/23 Godfrey Cerda MD [address] [place] [address] [address] [place] [address] [email or web address] Historical LMR Provider 08/21/18 documented as of this encounter Additional Source Comments The information contained in this document represents components of the legal health record. It is not the complete legal health record.[facility]
[2025-06-07 18:39] VITALS: BP 108/52; PULSE 78; RESP 18; TEMP 36.9; O2SAT 99
== END 2025-06-07 18:39 | disposition home or self-care (01) ==
PROVIDERS: Physician Assistant Medical; Emergency Provider Emergency Medicine
DX: R05.9 Cough, unspecified (principal); I12.9 Hypertensive chronic kidney disease with stage 1 through stage 4 chronic kidney disease, or unspecified chronic kidney disease; N18.32 Chronic kidney disease, stage 3b; Z03.818 Encounter for observation for suspected exposure to other biological agents ruled out
CPT/HCPCS: 71046; 87637; 99282; 99283

== ENCOUNTER → 2025-06-07 15:03 | Outpatient (BNV) | payer OTHER, SELFPAY | PROVIDERS: Visit Provider Radiology Diagnostic Radiology | DX: R05.9 Cough, unspecified (principal) | CPT/HCPCS: 71046 ==